=== PATIENT | male | born 1965 | race Caucasian/White ===

== ENCOUNTER 2020-04-06 15:16 | Emergency (ER) | payer OTHER, SELFPAY ==
[2020-04-06 17:05] VITALS: BP 149/94; PULSE 82; RESP 18; TEMP 37; O2SAT 98; BMI 40.0
--- NOTE | 2020-04-06 17:05 | ED.EAR ---
HPI - Ear Problem General Chief complaint: Ear Problems Stated complaint: FB IN EAR Time Seen by Provider: 04/06/20 16:51 Source: patient Mode of arrival: ambulatory Limitations: no limitations History of Present Illness HPI Narrative: attempted to get FB out of ear then noted blood thinks it was metal from work Complaint: ear pain and foreign body Location: left ear Duration: constant Severity: mild Relieving factors: nothing Exacerbating factors: nothing Context: trauma (thinks he got metal in his ear then tried to get it out with a qtip and noted blood) Discharge from ear: yes - bloody Treatment prior to arrival: none Related Data Previous Rx's Medication Instructions Recorded ofloxacin 10 drp OTIC (EARS) DAILY 7 Days #5 04/06/20 ml Allergies Allergy/AdvReac Type Severity Reaction Status Date / Time piroxicam [PIROXICAM] Allergy Intermediate NOSEBLEEDS Verified 04/06/20 17:04 Review of Systems Review of Systems: Constitutional : No Fever, No Chills ENT/Mouth : No swallowing difficulty, no change in voice, no mass, pain in left ear and bloody drainage noted Eyes: No Eye Pain, No Swelling Cardiovascular : No Chest Pain, No SOB Respiratory : No Cough, No Sputum Gastrointestinal : No Nausea, No Vomiting, No Diarrhea Genitourinary : No Dysuria Musculoskeletal : No Myalgias Skin : No rash Neuro : No Weakness, No Numbness, No Headache PMFSH Past Medical History Medical History Degenerative disc disease Depression GERD (gastroesophageal reflux disease) HTN (hypertension) Hypothyroid Low testosterone in male Migraines Osteoarthritis Overactive bladder Scoliosis Sleep apnea Surgical History Hip joint replacement status Social History Social History (Updated 04/06/20 @ 17:10 by Karolyn Edge DO) Smoking Status: Never smoker Physical Exam Vital Signs: Vital Signs: Vital Signs Temp Pulse Resp BP Pulse Ox 04/06/20 17:05 98.6 F 82 18 149/94 H 98 Body Mass Index 40.0 Appearance: Alert. Oriented X3. No acute distress. Eyes: Pupils equal, round and reactive to light. ENT: Pharynx normal. L ear abrasion less than 1cm on inferior portion of canal - bloody drainage noted, fresh, TM intact, no FB seen but bits of qtip noted (cotton) Neck: Normal inspection. Neck supple. CVS: Normal heart rate and rhythm. Pulses normal. Respiratory: No respiratory distress. Breath sounds normal. Abdomen: Soft and nontender. Skin: Skin warm and dry. Normal skin color. Normal skin turgor. Extremities: No lower extremity edema. No calf ttp Neuro: Oriented X 3. No motor deficit. No sensory deficit. Procedures FB Removal Ear Location: ear canal (L) Foreign Body Suspected: other (cotton from qtip) TM intact pre-procedure: yes Foreign Body Removed: yes Foreign Body Removal Technique: forceps Tympanic Membrane Intact Post Procedure: Yes Patient Tolerated Procedure: well Complications: none MDM - Ear MDM Narrative Medical decision making narrative: 54 yo male with FB likely in ear and attempts to remove at home caused bleeding and abrasion, removed some bits of cotton from ear, irrigated with sterile saline, TM intact, will Rx ofloxacin drops and if not better refer to ENT Discharge Plan Discharge Clinical Impression: Otitis externa, Abrasion Patient Disposition: Home, Self-Care Instructions: Otitis Externa (ED), Ear Abrasion (ED) Additional Instructions: do not get any water in your ear x 3 days including in shower, do not put anything like ear phones in your ear x 1 week, any worsening pain, yellow drainage, hearing loss please return to the ED [facility] Prescriptions: New ofloxacin 0.3 % drops 10 drp otic (ears) DAILY 7 Days Qty: 5 RF: 0 Referrals: Alberto Tomlin [Physician] - 3 days (if not better)
== END 2020-04-06 17:39 | disposition home or self-care (01) ==
LOC: HO.ED 17:33
PROVIDERS: Emergency Provider Emergency Medicine; PCP Internal Medicine
DX: H60.92 Unspecified otitis externa, left ear (principal); S00.412A Abrasion of left ear, initial encounter; T16.2XXA Foreign body in left ear, initial encounter; H92.02 Otalgia, left ear; Y33.XXXA Other specified events, undetermined intent, initial encounter; Y93.9 Activity, unspecified; Y92.009 Unspecified place in unspecified non-institutional (private) residence as the place of occurrence of the external cause
CPT/HCPCS: 69200; 99283

== ENCOUNTER 2020-05-23 10:59 | Outpatient (REF) | payer OTHER, SELFPAY | END 2020-05-23 11:00 | disposition home or self-care (01) | LOC: HO.LAB 10:59 | PROVIDERS: Visit Provider Internal Medicine | DX: Z20.828 Contact with and (suspected) exposure to other viral communicable diseases (principal) | CPT/HCPCS: C9803; U0003 ==

== ENCOUNTER 2020-07-15 07:34 | Outpatient (REF) | payer OTHER, SELFPAY | END 2020-07-15 07:35 | disposition home or self-care (01) | LOC: HO.LAB 07:34 | PROVIDERS: Visit Provider Internal Medicine | DX: Z20.822 Contact with and (suspected) exposure to COVID-19 (principal) | CPT/HCPCS: 36415; C9803; U0003; U0005 ==

== ENCOUNTER 2021-06-27 09:49 | Outpatient (REF) | payer OTHER, SELFPAY ==
--- NOTE | ~2021-06-27 | XR_ITS ---
EXAMINATION: XR PELVIS CLINICAL INFORMATION: Hip pain. COMPARISON: Previous left hip and pelvis x-rays from 2018. TECHNIQUE: AP view of the pelvis. FINDINGS: There is a left hip replacement in satisfactory position. No evidence of fracture, dislocation or loosening is seen. There is increasing soft tissue ossification adjacent to the left greater trochanter. There is severe arthritis at the right hip joint with joint space narrowing, osteophyte formation and subchondral cyst formation. Bones of the pelvis are unremarkable. There are degenerative changes of the visualized lower lumbar spine. XR/XR pelvis 1-2V IMPRESSION: Severe right hip arthritis. Satisfactory appearance of left hip replacement. Increasing soft tissue ossification adjacent to the left greater trochanter.
== END 2021-06-27 09:50 | disposition home or self-care (01) ==
LOC: HO.HOSX 09:49
PROVIDERS: Visit Provider Orthopaedic Surgery
DX: M25.551 Pain in right hip (principal); M16.11 Unilateral primary osteoarthritis, right hip; I10 Essential (primary) hypertension; E03.9 Hypothyroidism, unspecified; K21.9 Gastro-esophageal reflux disease without esophagitis; G47.30 Sleep apnea, unspecified; Z96.642 Presence of left artificial hip joint; Z88.8 Allergy status to other drugs, medicaments and biological substances
CPT/HCPCS: 72170

== ENCOUNTER 2021-09-18 06:38 | Outpatient (REF) | payer OTHER, SELFPAY ==
--- NOTE | ~2021-09-18 | XR_ITS ---
EXAMINATION: XR HIP, RIGHT CLINICAL INFORMATION: Pain COMPARISON: Previous x-ray June 2021 TECHNIQUE: Two views of the right hip. FINDINGS: There is severe right hip arthritis with joint space narrowing, osteophyte formation and subchondral cyst formation. Similar to June 2021 exam. No fracture or dislocation is seen. Soft tissues are normal. XR/XR hip RT min 2V IMPRESSION: Severe right hip arthritis.
== END 2021-09-18 06:39 | disposition home or self-care (01) ==
LOC: HO.HOSX 06:38
PROVIDERS: Visit Provider Physician Assistant
DX: M16.11 Unilateral primary osteoarthritis, right hip (principal)
CPT/HCPCS: 73502

== ENCOUNTER 2021-09-24 10:18 | Inpatient (IN) | payer OTHER, SELFPAY ==
[2021-09-10 12:22] VITALS: BMI 41.8
[2021-09-10 12:30] VITALS: BP 122/59; PULSE 80; RESP 18; O2SAT 98
--- NOTE | 2021-09-10 12:58 | P.CONAN_ITS ---
Documented by User: Nadia Hernandez NP 09/11/21 12:03 HPI - Anesthesia Eval Consult details Narrative: 55yo M for Right Total Hip PCP cleared s/p left total hip 2018, GA_ETT 7.5 - no issue with anesthesia PMFSH Active Problems Active Problems: All Active Problems (Updated 09/10/21 @ 12:37 by Shelly Burdick RN) Primary osteoarthritis of right hip (Acute) GERD (gastroesophageal reflux disease) (Acute) HTN (hypertension) (Acute) Sleep apnea (Acute) Past Medical History Medical History Degenerative disc disease Depression GERD (gastroesophageal reflux disease) HTN (hypertension) Hypothyroid IFG (impaired fasting glucose) Low testosterone in male Low vitamin D level Migraines Osteoarthritis Overactive bladder Scoliosis Sleep apnea Family History Family history of problems with anesthesia: No Surgical History Surgical History History of nasal surgery Hx of colonoscopy Hx of hernia repair Hx of total hip arthroplasty History of Problems with Anesthesia: No Social History Social History Are you a primary direct care supervisor to a significant other at home: No Do you presently have visiting nurse or other home services: No Alcohol intake: never Patient Tobacco Use Status: Never used Tobacco Second Hand Smoke Exposure: Yes () Use of substances other than those prescribed or required for medical reasons: No Have you been hit, kicked, punched, or otherwise hurt by someone within the past year? If so, by whom?: No Spiritual Healthcare Practices: none Confucianism Healthcare Practices: none Cultural Healthcare Practices: none Are you DNR?: No Advance Directives: No Advance Directives Information Provided: Yes Advance Directives on File: No Recently lost weight without trying: No Nutrition Risks: No Nutritional Risk Poor oral hygiene: No Narrative Narrative: No recent illness. No CP/SOB with stairs, walking. Activity limited to pain Meds Allergies Allergy/AdvReac Type Severity Reaction Status Date / Time piroxicam [PIROXICAM] Allergy Intermediate NOSEBLEEDS Verified 09/24/21 10:25 Home Medications Medication Instructions Recorded Confirmed Last Taken Type ibssonsqpd-yjwyvnccyucnv-tlcjsqlr 1 cap PO Q8H PRN 06/27/21 09/10/21 Unknown History 50 mg-300 mg-40 mg capsule diazepam 2 mg tablet 2 mg PO BEDTIME PRN 06/27/21 09/10/21 Unknown History diclofenac sodium 75 mg 75 mg PO BID 06/27/21 09/10/21 Unknown History tablet,delayed release escitalopram oxalate 20 mg tablet 20 mg PO BEDTIME 06/27/21 09/10/21 09/24/21 06:00 History hydroxychloroquine 200 mg tablet 200 mg PO BID 06/27/21 09/10/21 Unknown History ibuprofen 600 mg tablet 600 mg PO Q8H PRN 06/27/21 09/24/21 09/22/21 History levothyroxine 50 mcg capsule 50 mcg PO DAILY 06/27/21 09/10/21 09/24/21 06:00 History lisinopril 40 mg tablet 40 mg PO BEDTIME 06/27/21 09/10/21 Unknown History nifedipine 30 mg tablet,extended 30 mg PO BEDTIME 06/27/21 09/10/21 09/24/21 06:00 History release pantoprazole 40 mg tablet,delayed 40 mg PO BEDTIME 06/27/21 09/10/21 09/24/21 06:00 History release pramipexole 0.25 mg tablet 0.25 mg PO BEDTIME 06/27/21 09/10/21 Unknown History oxycodone 5 mg tablet 0.5 tab PO Q8H PRN 09/10/21 09/10/21 Unknown History Exam Exam Date and Time: September 10, 2021 1258 Height,Weight and Vital Signs: Height 6 ft Weight 140 kg Last Vital Signs Pulse 80 09/10/21 12:30 Resp 18 09/10/21 12:30 BP 122/59 L 09/10/21 12:30 Pulse Ox 98 09/10/21 12:30 Pertinent Lab Results Pertinent Lab Results: From outside facility 08/29/21 WBC 5.8 Hgb 11.9 (L) Hct 38.3 (L) Plt 216 Na 144 K 4.3 Cl 107 CO2 29 BUN 16 Creat 0.7 A1C 5.8 Narrative Narrative: EKG 08/26/21 NSR @ 75 Prolonged QTc @ 480 Airway Mallampati Class: III TM Dist: >3cm Neck ROM: Full Loose/Missing/Broken Teeth: Yes (8&9 missing) Heart: RRR Lungs: CTAB Assessment and Plan Assessment Anesthesia Assessment: Anesthesia Plan Discussed and PAT Visit Final Anesthetic Review Family History of Problems with Anesthesia: No History of Problems with Anesthesia: No Documented by User: Kamran Sung MD 09/24/21 13:06 HPI - Anesthesia Eval Consult details Narrative: 55yo M for Right Total Hip Right lower extremity edematous and warm compared to left . As per patient he got Ultrasound performed and was negative for thrombosis . PCP on board and has started the patient on diuretics . Surgeon also aware and inspected the extremity and would like to proceed with the surgery . Had a discussion with the patient as well and he would like to proceed as well . PCP cleared s/p left total hip 2018, GA_ETT 7.5 - no issue with anesthesia PMFSH Past Medical History Medical History Degenerative disc disease Depression GERD (gastroesophageal reflux disease) HTN (hypertension) Hypothyroid IFG (impaired fasting glucose) Low testosterone in male Low vitamin D level Migraines Osteoarthritis Overactive bladder Scoliosis Sleep apnea Surgical History Surgical History History of nasal surgery Hx of colonoscopy Hx of hernia repair Hx of total hip arthroplasty Social History Social History Are you a primary direct care supervisor to a significant other at home: No Do you presently have visiting nurse or other home services: No Alcohol intake: never Patient Tobacco Use Status: Never used Tobacco Second Hand Smoke Exposure: Yes () Use of substances other than those prescribed or required for medical reasons: No Have you been hit, kicked, punched, or otherwise hurt by someone within the past year? If so, by whom?: No Spiritual Healthcare Practices: none Confucianism Healthcare Practices: none Cultural Healthcare Practices: none Are you DNR?: No Advance Directives: No Advance Directives Information Provided: Yes Advance Directives on File: No Recently lost weight without trying: No Nutrition Risks: No Nutritional Risk Poor oral hygiene: No Meds Allergies Allergy/AdvReac Type Severity Reaction Status Date / Time piroxicam [PIROXICAM] Allergy Intermediate NOSEBLEEDS Verified 09/24/21 10:25 Home Medications Medication Instructions Recorded Confirmed Last Taken Type vlbalrmeyi-zopviqtcfjbof-fdntmjqe 1 cap PO Q8H PRN 06/27/21 09/10/21 Unknown History 50 mg-300 mg-40 mg capsule diazepam 2 mg tablet 2 mg PO BEDTIME PRN 06/27/21 09/10/21 Unknown History diclofenac sodium 75 mg 75 mg PO BID 06/27/21 09/10/21 Unknown History tablet,delayed release escitalopram oxalate 20 mg tablet 20 mg PO BEDTIME 06/27/21 09/10/21 09/24/21 06:00 History hydroxychloroquine 200 mg tablet 200 mg PO BID 06/27/21 09/10/21 Unknown History ibuprofen 600 mg tablet 600 mg PO Q8H PRN 06/27/21 09/24/21 09/22/21 History levothyroxine 50 mcg capsule 50 mcg PO DAILY 06/27/21 09/10/21 09/24/21 06:00 History lisinopril 40 mg tablet 40 mg PO BEDTIME 06/27/21 09/10/21 Unknown History nifedipine 30 mg tablet,extended 30 mg PO BEDTIME 06/27/21 09/10/21 09/24/21 06:00 History release pantoprazole 40 mg tablet,delayed 40 mg PO BEDTIME 06/27/21 09/10/21 09/24/21 06:00 History release pramipexole 0.25 mg tablet 0.25 mg PO BEDTIME 06/27/21 09/10/21 Unknown History oxycodone 5 mg tablet 0.5 tab PO Q8H PRN 09/10/21 09/10/21 Unknown History Exam Airway Loose/Missing/Broken Teeth: Yes (8&9 missing, implants ) Assessment and Plan Assessment Anesthesia Assessment: Chart Reviewed Final Anesthetic Review NPO: Yes ASA Class: III Final Preanesthetic Review: No Changes in Pt Med Stat, Meds/Allgs Chart Reviewed, Consent Obtained/Reviewed and Anes Risks/Benef Reviewed Patient Risk: High Procedure Risk: High Anesthetic Plan Anesthetic Plan: GA Disposition: Inp. Admit - Standard Bed
[2021-09-10 15:07] LABS: MRSA Nasal PCR NEGATIVE (Negative); SA Nasal PCR NEGATIVE (Negative)
[2021-09-24] VITALS (18 sets, daily range): BP systolic 126–159; BP diastolic 64–89; PULSE 93–109; RESP 13–20; TEMP 36.2–36.7; O2SAT 93–99
--- NOTE | ~2021-09-24 | XR_ITS ---
EXAMINATION: XR PELVIS CLINICAL INFORMATION: Total right hip. COMPARISON: Right hip 09/18/2021 AP pelvis 12/20/2017 TECHNIQUE: AP view of the pelvis. FINDINGS: Status post right hip prosthesis with prosthetic components in alignment. There is no periprosthetic loosening or periprostatic fracture. Previously placed left hip prosthesis is stable compared to 12/20/2017 pelvic exam.. XR/XR pelvis 1-2V IMPRESSION: Status post right hip prosthesis with normal prosthetic alignment. No periprosthetic fracture or soft tissue abnormality. No change in left hip prosthesis from 12/20/2017.
[2021-09-24 10:41] LABS: MANUAL DIFF FLAG NO
[2021-09-24 10:44] LABS: Basophils Percent Auto 0.4 % (0-2); Eosinophils Absolute Auto 0.1 X10*3/uL (0.0-0.4); Hemoglobin 13.3 g/dl (14.0-18.0); Imm Gran Abs Auto 0.02 X10*3/uL (0.00-0.03); Imm Gran Pct Auto 0.3 % (0.0-0.4); Lymphocytes Absolute Auto 1.5 X10*3/uL (1.2-4.9); Lymphocytes Percent Auto 20.4 % (20-40); Mean Corpuscular HGB Conc 31.7 g/dl (31.0-36.0); Mean Corpuscular Volume 91.7 fL (80.0-98.0); Mean Platelet Volume 10.4 fL (9.4-12.4); Monocytes Absolute Auto 0.6 X10*3/uL (0.1-1.2); Monocytes Percent Auto 7.7 % (2-11); Neutrophils Percent Auto 70.2 % (45-73); Platelet Count 202 X10*3/uL (160-400); Red Blood Count 4.58 X10*6/uL (4.60-5.80); Red Cell Distribution Width 13.4 % (11.0-16.0); White Blood Count 7.2 X10*3/uL (4.8-10.8)
--- NOTE | 2021-09-24 10:44 | MHC.SHP ---
Pre-Procedural Eval Section A Date of Service: 09/24/21 The patient is an INPATIENT: No Changes since office visit: Yes Patient answered all questions; No Cold of Flu in the past 2 weeks, No New Medical Problems and No Changes in Medication The History & Physical has been completed within 30 days and I have reviewed it.: Yes Section B Chief Complaint: osteoarthritis Allergies: Allergies Allergy/AdvReac Type Severity Reaction Status Date / Time piroxicam [PIROXICAM] Allergy Intermediate NOSEBLEEDS Verified 09/24/21 10:25 Plan I have reviewed the history and physical and performed a pertinent physical examination on my patient. No changes have occurred unless specified.
[2021-09-24 10:49] LABS: COVID-19 Test Negative (Negative); IDNOW Serial# 16C4AD1C
[2021-09-24] MEDS: oxyCODONE HCl ER 10 MG TAB.ER.12H PO ×2 (10:55→20:15)
[2021-09-24] MEDS: Lactated Ringers 1,000 ML 100 ML IVCONT ×2 (11:13→15:13)
--- NOTE | 2021-09-24 11:15 | PC.NURSE ---
Patient arrived to [facility] for prep for total hip replacement on right side. Right lower leg and foot swollen with +2 pitting edema. Extremity pinker and warmer to touch when compared to left side. Per patient My right leg has been like this for months, I've had an ultrasound to rule out DVT and the tests came back negative, My PCP has started me on a diuretic which has been helping . Palpable pulses throughout right lower extremity, patient denies any numbness. Dr. Mae and Dr. Sung made aware and both at bedside to assess leg. No new orders and cleared to proceed with surgery. Hortencia Walden RN notified during report.
--- NOTE | 2021-09-24 13:47 | P.BOP_ITS ---
Brief Operative Note Date of Service: 09/24/21 Pre-op diagnosis: right hip OA Post-op diagnosis: same Procedure: Right GENESIS Implants: Ai Trident2 54mm with 20 deg post lipped liner Strykler Accolade2 127deg #6 with +5 36 Ceramic Surgeon: Geo Mae MD Anesthesia: GETA Was an Director Records Management used for this Procedure?: No Director Records Management: Annette Tuttle Estimated blood loss (mL): 200 IV fluids (mL): 1,000 Pathology: other Condition: stable Disposition: PACU
[2021-09-24] MEDS: fentaNYL citrate/PF 100 MCG/2 ML VIAL 25 MCG IVPUSH ×4 (13:48→14:03)
--- NOTE | 2021-09-24 13:51 | P.OP_ITS ---
Operative Note Operative Note Date of Service: 09/24/21 Narrative: Date of Service: 09/24/21 Pre-op diagnosis: right hip OA Post-op diagnosis: same Procedure: Right GENESIS Implants: [place] Trident2 54mm with 20 deg post lipped liner Strykler Accolade2 127deg #6 with +5 36 Ceramic Surgeon: Geo Mae MD Anesthesia: GETA Was an Welder And Fitter used for this Procedure?: No Welder And Fitter: Annette Tuttle Estimated blood loss (mL): 200 IV fluids (mL): 1,000 Pathology: other Condition: stable Disposition: PACU Procedure in detail: Patient was brought into the operating room and placed in the left lateral decubitus position. All bony prominences were well padded and the limb was prepped and draped in standard sterile fashion. Time-out was called to identify proper site procedure proper surgeon IV antibiotics and 1 g of transaxemic acid were administered. I began by making a curvilinear incision over the posterolateral aspect of the greater trochanter. Dissection was taken down to the tensor fascia which was incised in line with the incision and a Charnley retractor was placed. Cautery was used to maintain hemostasis. A werewolf device was also used. The hip was internally rotated and the external rotators were identified. The vessels were cauterized and a full-thickness capsular/external rotator layer was developed starting just proximal to the piriformis. This layer was tagged and a dull Hohmann retractor was placed underneath the neck in the hip was dislocated. The head was deformed and eburnated. A neck cut was made 1 cm proximal to the lesser trochanter and the head and neck were removed and measured on the back table. I started with a 44 reamer and sequentially reamed up to 54mm and impacted a 54 cup at approximately 45 degrees of inclination and 25 degrees of version. I then placed a 20 deg posterior lipped liner and turned my attention to the femur. I identified the piriformis insertion and used this as a starting point for my patsy cutter. The medius tendon was protected with a Hibs retractor. I then used a Charnley awl to identify the canal and a curved curette to remove the lateral bone. I irrigated copiously. I then sequentially broached in the patient's natural version to a size 6 and placed my trial implants. Using a +5 trial head (same os C/L side) I took the hip through range of motion. I was very satisfied with the stability and length. Therefore I removed all instrumentation and copiously irrigated. I placed my final femoral implant and again took the hip through range of motion and was satisfied with the stability and length using a +5. The final ceramic head was placed. I then irrigated for 3 minutes with iodine and placed 1 g of local tranaxemic acid. I then performed a capsular closure with 2.0 fiberwire, Fernanda's fascia with 0 Vicryl, subcuticular with 2-0 Vicryl and the skin with mitchell. Patient was placed into a sterile dressing. Radiographs were obtained at the completion of the case and I was satisfied with the component position. Patient was extubated brought to the recovery room in stable condition.
[2021-09-24] MEDS: HYDROmorphone HCl 0.5 MG/0.5 ML SYRINGE 0.25 MG IVPUSH ×4 (14:08→14:23)
[2021-09-24] MEDS: HYDROmorphone HCl 0.5 MG/0.5 ML SYRINGE IVPUSH (14:53)
--- NOTE | 2021-09-24 16:54 | P.CONHOSP_ITS ---
History of Present Illness Data of Consult Service Date: 09/24/21 Primary Care Provider: Chantale Trinidad MD HPI 55 year old ol male with HTN, GERD, Hypothyroidism, DJD amongst other dwho underwent elective R GENESIS today and doing fine post op. He voices no acute issues, pain is controlled. Review of Systems Review of Systems: Gen: no fever Resp: no sob, no cough CV: no chest, no CONTRERAS, no leg edema GI: No n/v, no abd pain Neuro: No confusion Yes all other systems are reviewed and are negative [facility] Medical History Degenerative disc disease Depression GERD (gastroesophageal reflux disease) HTN (hypertension) Hypothyroid IFG (impaired fasting glucose) Low testosterone in male Low vitamin D level Migraines Osteoarthritis Overactive bladder Scoliosis Sleep apnea Surgical History History of nasal surgery Hx of colonoscopy Hx of hernia repair Hx of total hip arthroplasty Social History Household Members: Spouse Housing: House Are you a primary critical care registered nurse to a significant other at home: No Do you presently have visiting nurse or other home services: No Alcohol intake: never Patient Tobacco Use Status: Never used Tobacco Second Hand Smoke Exposure: Yes () Use of substances other than those prescribed or required for medical reasons: No Currently Displaying Signs/Symptoms of Drug Intoxication Withdrawal: No Have you been hit, kicked, punched, or otherwise hurt by someone within the past year? If so, by whom?: No Do you feel safe in your current relationship?: Yes Is there a partner from a previous relationship who is making you feel unsafe now?: No Are you made to feel afraid or neglected: No Spiritual Healthcare Practices: none [facility] Healthcare Practices: none Cultural Healthcare Practices: none Are you DNR?: No Advance Directives: No Advance Directives Information Provided: Yes Advance Directives on File: No Do you have thoughts of harming others: None Do you have a plan to hurt others: No Plan Recently lost weight without trying: No Nutrition Risks: No Nutritional Risk Poor oral hygiene: No Meds Allergies Allergy/AdvReac Type Severity Reaction Status Date / Time piroxicam [PIROXICAM] Allergy Intermediate NOSEBLEEDS Verified 09/24/21 10:25 Active Medications: Current Medications Acetaminophen (Acetaminophen 325 Mg Tablet) 650 mg PO Q6H PRN PRN Reason: Pain, Mild (Pain Scale 1-3) Acetaminophen/Butalbital/Caffeine (Butalb/Acetamin/Caff 50/325/40 Tablet) 1 tab PO Q8H PRN PRN Reason: Headache Celecoxib (Celecoxib 200 Mg Capsule) 200 mg PO BID [facility] Diazepam (Diazepam 2 Mg Tablet) 2 mg PO BEDTIME PRN PRN Reason: Anxiety Docusate Sodium (Docusate Sodium 100 Mg Capsule) 100 mg PO BID [facility] Escitalopram Oxalate (Escitalopram Oxalate 20 Mg Tablet) 20 mg PO BEDTIME [facility] Hydroxychloroquine Sulfate (Hydroxychloroquine Sulfate 200 Mg Tablet) 200 mg PO BID [facility] Lactated Ringer's (Lr) 1,000 mls @ 100 mls/hr IVCONT .Q10H [facility] Last Admin: 09/24/21 15:13 Dose: 100 mls/hr Documented by: Promethazine HCl 12.5 mg/ (Sodium Chloride) 50.5 mls @ 202 mls/hr IV ONCE PRN PRN Reason: Nausea and Vomiting Cefazolin Sodium/Dextrose (Ancef) 2 gm in 50 mls @ 100 mls/hr IV POSTOP ONE Stop: 09/24/21 17:29 Levothyroxine Sodium (Levothyroxine Sodium 50 Mcg Tablet) 50 mcg PO DAILY@0600 [facility] Lisinopril (Lisinopril 40 Mg Tablet) 40 mg PO BEDTIME [facility]; Protocol Nifedipine (Nifedipine Er 30 Mg Tab.Er.24) 30 mg PO BEDTIME [facility] Omeprazole (Omeprazole 20 Mg Capsule.Dr) 20 mg PO BEDTIME [facility] Oxycodone HCl (Oxycodone Hcl Immed Release 5 Mg Tablet) 5 mg PO Q4H PRN PRN Reason: Pain, Moderate (Pain Scale 4-6 Oxycodone HCl (Oxycodone Hcl Er 10 Mg Tab.Er.12h) 10 mg PO BID [facility] Pramipexole Dihydrochloride (Pramipexole Di-Hcl 0.25 Mg Tablet) 0.25 mg PO BEDTIME [facility] Sodium Chloride (0.9 % Sodium Chloride Flush 3 Ml Syringe) 3 ml IVFLUSH QSHIFT [facility] Home Medications Medication Instructions Recorded Confirmed Last Taken Type kpljvrazyk-[id number]-[id number] 1 cap PO Q8H PRN 06/27/21 09/10/21 Unknown History 50 mg-300 mg-40 mg capsule diazepam 2 mg tablet 2 mg PO BEDTIME PRN 06/27/21 09/10/21 Unknown History diclofenac sodium 75 mg 75 mg PO BID 06/27/21 09/10/21 Unknown History tablet,delayed release escitalopram oxalate 20 mg tablet 20 mg PO BEDTIME 06/27/21 09/10/21 09/24/21 06:00 History hydroxychloroquine 200 mg tablet 200 mg PO BID 06/27/21 09/10/21 Unknown History ibuprofen 600 mg tablet 600 mg PO Q8H PRN 06/27/21 09/24/21 09/22/21 History levothyroxine 50 mcg capsule 50 mcg PO DAILY 06/27/21 09/10/21 09/24/21 06:00 History lisinopril 40 mg tablet 40 mg PO BEDTIME 06/27/21 09/10/21 Unknown History nifedipine 30 mg tablet,extended 30 mg PO BEDTIME 06/27/21 09/10/21 09/24/21 06:00 History release pantoprazole 40 mg tablet,delayed 40 mg PO BEDTIME 06/27/21 09/10/21 09/24/21 06:00 History release pramipexole 0.25 mg tablet 0.25 mg PO BEDTIME 06/27/21 09/10/21 Unknown History oxycodone 5 mg tablet 0.5 tab PO Q8H PRN 09/10/21 09/10/21 Unknown History Physical Exam Vital Signs and Narrative: Vital Signs: Last Vital Signs Temp 97.7 F 09/24/21 15:13 Pulse 98 09/24/21 15:13 Resp 14 09/24/21 15:13 BP 159/86 H 09/24/21 15:13 Pulse Ox 95 09/24/21 15:13 BMI result Body Mass Index 41.8 Const: Other: General: AO X 3, no acute distress Resp: CTA bilateral CVS: S1,S2,RRR GI: +BS, NT, no distention Skin: No rash, no rash, incicison site clean, right leg is much bigger Neuro: motor grossly intact Psych: appropriate affect Results Labs CBC and Chem 7: 09/25/21 05:21 09/25/21 05:21 Labs: Laboratory Results - last 24 hr 09/24/21 09/24/21 10:20 10:35 MCV 91.7 MCH 29.0 MCHC 31.7 RDW 13.4 Plt Count 202 MPV 10.4 Immature Gran % (Auto) 0.3 Neut % (Auto) 70.2 Lymph % (Auto) 20.4 Power % (Auto) 7.7 Eos % (Auto) 1.0 Baso % (Auto) 0.4 Lymph # (Auto) 1.5 Power # (Auto) 0.6 Eos # (Auto) 0.1 Baso # (Auto) 0.0 Abs Immat Gran (auto) 0.02 Absolute Neuts (auto) 5.0 Absolute Nucleated RBC 0.000 Nucleated RBC % (auto) 0.0 COVID-19 (HAIDER) Negative COVID-19 Clin Com See Note Imaging Radiologist's Impressions: Impressions Pelvis X-Ray 09/24/21 13:26 IMPRESSION: Status post right hip prosthesis with normal prosthetic alignment. No periprosthetic fracture or soft tissue abnormality. No change in left hip prosthesis from 12/20/2017. Assessment and Plan (1) HTN (hypertension): Status: Acute (2) GERD (gastroesophageal reflux disease): Status: Acute (3) Primary osteoarthritis of right hip: Status: Acute Plan s/p elective R GENESIS 1/HTN--continue Lisinoprill and Nifedipin 2/HypOthyrodisim--LT4 3/GERD--PPI 4/h/o Migrane-- 5/right leg edema has had work up including DVT studies 6/h/o migraine.. no recent flare 7/s/p R GENESIS, management per ortho
[2021-09-24] MEDS: ceFAZolin Sodium/Dextrose,Iso 2 GM/50 ML PIGGYBACK IV (17:32)
[2021-09-24] MEDS: oxyCODONE HCl Immed Release 5 MG TABLET PO (17:45)
[2021-09-24] MEDS: Hydroxychloroquine Sulfate 200 MG TABLET PO (20:14)
[2021-09-24] MEDS: Docusate Sodium 100 MG CAPSULE PO (20:14)
[2021-09-24] MEDS: Celecoxib 200 MG CAPSULE PO (20:14)
[2021-09-24] MEDS: Pramipexole Di-HCL 0.25 MG TABLET PO (20:15)
[2021-09-24] MEDS: Omeprazole 20 MG CAPSULE.DR PO (20:15)
[2021-09-24] MEDS: Acetaminophen 325 MG TABLET 650 MG PO (20:16)
[2021-09-24] MEDS: NIFEdipine ER 30 MG TAB.ER.24 PO (20:16)
[2021-09-24] MEDS: lisinopriL 40 MG TABLET PO (20:16)
[2021-09-24] MEDS: Escitalopram Oxalate 20 MG TABLET PO (20:16)
--- NOTE | 2021-09-24 22:45 | PC.NURSE ---
P patient uses cpap at hs I Dr. Meek notified E awaiting new order
[2021-09-24] MEDS: Butalb/Acetamin/Caff 50/325/40 TABLET 1 TAB PO (23:43)
[2021-09-25] VITALS (8 sets, daily range): BP systolic 92–140; BP diastolic 54–73; PULSE 75–111; RESP 17–20; TEMP 36.2–37.2; O2SAT 92–96
[2021-09-25] MEDS: Lactated Ringers 1,000 ML 100 ML IVCONT (01:24)
[2021-09-25] MEDS: oxyCODONE HCl Immed Release 5 MG TABLET PO ×4 (01:28→17:07)
--- NOTE | 2021-09-25 03:14 | PC.NURSE ---
PATIENT POD #1 RIGHT TOTAL HIP; WBAT, AQUACEL DSG C-D-I. VOIDING TO BEDSIDE URINAL, SEQUENTIAL STOCKINGS ON BILAT. MEDICATED FOR HEADACHE WITH PO FIORICET WITH GOOD EFFECT. VSS WITH OXYGEN AT 2L/M N/C. ASSISTED PT WITH OWN CPAP SET UP AND HE IS INDEPENDENT WITH FACIAL MASK APPLICATION AND FIT. O2 REMOVED WHEN CPAP IN PLACE AND O2 SATS95%. WILL CONTINUE TO MONITOR.
[2021-09-25] MEDS: Levothyroxine Sodium 50 MCG TABLET PO (05:31)
[2021-09-25] MEDS: Acetaminophen 325 MG TABLET 650 MG PO ×2 (05:31→17:07)
[2021-09-25 06:06] LABS: MANUAL DIFF FLAG NO
[2021-09-25 06:17] LABS: Basophils Percent Auto 0.1 % (0-2); Hematocrit 35.7 % (42.0-52.0); Hemoglobin 11.3 g/dl (14.0-18.0); Imm Gran Abs Auto 0.04 X10*3/uL (0.00-0.03); Imm Gran Pct Auto 0.4 % (0.0-0.4); Lymphocytes Absolute Auto 0.8 X10*3/uL (1.2-4.9); Lymphocytes Percent Auto 7.1 % (20-40); Mean Corpuscular HGB Conc 31.7 g/dl (31.0-36.0); Mean Corpuscular Hemoglobin 29.4 pg (27.0-33.0); Mean Platelet Volume 10.4 fL (9.4-12.4); Monocytes Percent Auto 9.3 % (2-11); Neutrophils Percent Auto 83.1 % (45-73); Platelet Count 223 X10*3/uL (160-400); Red Blood Count 3.84 X10*6/uL (4.60-5.80); Red Cell Distribution Width 13.7 % (11.0-16.0); White Blood Count 10.8 X10*3/uL (4.8-10.8)
[2021-09-25 06:34] LABS: Anion Gap 15 (12-20); Blood Urea Nitrogen 18 mg/dL (9-16); Calcium 8.5 mg/dL (8.4-10.2); Carbon Dioxide 24 mmol/L (22-29); Chloride 104 mmol/L (96-108); Creatinine Clr Calc Pharmacy 144.1; Estimated Glomerular Filt Rate > 60; Glucose Fasting 136 mg/dL (60-99); Sodium 139 mmol/L (135-145)
--- NOTE | 2021-09-25 06:43 | HO.POSTANES ---
Post Anesthesia Evaluation Post Anesthesia Evaluation Vital Signs: Vital Signs Temp Pulse Resp BP Pulse Ox 09/25/21 03:18 98.7 F 111 H 20 140/73 H 94 09/24/21 23:17 98.1 F 109 H 20 144/79 H 95 09/24/21 20:11 100 20 139/78 96 Anesthesia: General Mental Status: Awake Pain Control: Satisfactory Nausea/Vomiting: None Hydration: Adequate Anesthesia-Related Issues: No Anes. Related Issues
--- NOTE | 2021-09-25 07:33 | HO.PM.IMPN ---
Subjective Subjective Date of Service: 09/25/21 Interval History: f.u on HTN, post op d1 for right GENESIS doing fine with no pain issues Review of Systems Gen: no fever Resp: no sob, no cough CV: no chest, no CONTRERAS, no leg edema GI: No n/v, no abd pain Neuro: No confusion Physical Exam Vital Signs: Vital Signs: Last Vital Signs Temp 98.9 F 09/25/21 07:28 Pulse 110 H 09/25/21 07:28 Resp 18 09/25/21 07:28 BP 114/58 L 09/25/21 07:28 Pulse Ox 94 09/25/21 07:28 BMI result Body Mass Index 41.8 Const: Other: General: AO X 3, no acute distress Resp: CTA bilateral CVS: S1,S2,RRR GI: +BS, NT, no distention Skin: No rash, no rash, incicison site clean, right leg is much bigger ext: noted swelling in the right leg which he admits to be chronic Neuro: motor grossly intact Psych: appropriate affect Objective Data Active Medications Acetaminophen (Acetaminophen 325 Mg Tablet) 650 mg PO Q6H PRN PRN Reason: Pain, Mild (Pain Scale 1-3) Last Admin: 09/25/21 05:31 Dose: 650 mg Documented by: NITA Acetaminophen/Butalbital/Caffeine (Butalb/Acetamin/Caff 50/325/40 Tablet) 1 tab PO Q8H PRN PRN Reason: Headache Last Admin: 09/24/21 23:43 Dose: 1 tab Documented by: NITA Celecoxib (Celecoxib 200 Mg Capsule) 200 mg PO BID [facility] Last Admin: 09/24/21 20:14 Dose: 200 mg Documented by: SAMUEL Diazepam (Diazepam 2 Mg Tablet) 2 mg PO BEDTIME PRN PRN Reason: Anxiety Docusate Sodium (Docusate Sodium 100 Mg Capsule) 100 mg PO BID [facility] Last Admin: 09/24/21 20:14 Dose: 100 mg Documented by: SAMUEL Escitalopram Oxalate (Escitalopram Oxalate 20 Mg Tablet) 20 mg PO BEDTIME [facility] Last Admin: 09/24/21 20:16 Dose: 20 mg Documented by: SAMUEL Hydroxychloroquine Sulfate (Hydroxychloroquine Sulfate 200 Mg Tablet) 200 mg PO BID [facility] Last Admin: 09/24/21 20:14 Dose: 200 mg Documented by: SAMUEL Promethazine HCl 12.5 mg/ (Sodium Chloride) 50.5 mls @ 202 mls/hr IV ONCE PRN PRN Reason: Nausea and Vomiting Levothyroxine Sodium (Levothyroxine Sodium 50 Mcg Tablet) 50 mcg PO DAILY@0600 [facility] Last Admin: 09/25/21 05:31 Dose: 50 mcg Documented by: NITA Lisinopril (Lisinopril 40 Mg Tablet) 40 mg PO BEDTIME [facility]; Protocol Last Admin: 09/24/21 20:16 Dose: 40 mg Documented by: SAMUEL Nifedipine (Nifedipine Er 30 Mg Tab.Er.24) 30 mg PO BEDTIME [facility] Last Admin: 09/24/21 20:16 Dose: 30 mg Documented by: SAMUEL Omeprazole (Omeprazole 20 Mg Capsule.Dr) 20 mg PO BEDTIME [facility] Last Admin: 09/24/21 20:15 Dose: 20 mg Documented by: SAMUEL Oxycodone HCl (Oxycodone Hcl Immed Release 5 Mg Tablet) 5 mg PO Q4H PRN PRN Reason: Pain, Moderate (Pain Scale 4-6 Last Admin: 09/25/21 05:30 Dose: 5 mg Documented by: NITA Oxycodone HCl (Oxycodone Hcl Er 10 Mg Tab.Er.12h) 10 mg PO BID [facility] Last Admin: 09/24/21 20:15 Dose: 10 mg Documented by: SAMUEL Pramipexole Dihydrochloride (Pramipexole Di-Hcl 0.25 Mg Tablet) 0.25 mg PO BEDTIME [facility] Last Admin: 09/24/21 20:15 Dose: 0.25 mg Documented by: SAMUEL Sodium Chloride (0.9 % Sodium Chloride Flush 3 Ml Syringe) 3 ml IVFLUSH QSHIFT [facility] Last Admin: 09/25/21 07:03 Dose: Not Given Documented by: GEOVANY Non-Admin Reason: IV Running Labs CBC & Chem 7: 09/25/21 05:21 09/25/21 05:21 Labs: Laboratory Results - last 24 hr 09/24/21 09/24/21 09/25/21 10:20 10:35 05:21 MCV 91.7 93.0 MCH 29.0 29.4 MCHC 31.7 31.7 RDW 13.4 13.7 Plt Count 202 223 MPV 10.4 10.4 Immature Gran % (Auto) 0.3 0.4 Neut % (Auto) 70.2 83.1 H Lymph % (Auto) 20.4 7.1 L [place] % (Auto) 7.7 9.3 Eos % (Auto) 1.0 0.0 Baso % (Auto) 0.4 0.1 Lymph # (Auto) 1.5 0.8 L [place] # (Auto) 0.6 1.0 Eos # (Auto) 0.1 0.0 Baso # (Auto) 0.0 0.0 Abs Immat Gran (auto) 0.02 0.04 H Absolute Neuts (auto) 5.0 9.0 H Absolute Nucleated RBC 0.000 0.000 Nucleated RBC % (auto) 0.0 0.0 Anion Gap Estim Creat Clear Calc Estimated GFR Fasting Glucose Calcium COVID-19 ([facility]IDER) Negative COVID-19 Clin Com See Note 09/25/21 05:21 MCV MCH MCHC RDW Plt Count MPV Immature Gran % (Auto) Neut % (Auto) Lymph % (Auto) [place] % (Auto) Eos % (Auto) Baso % (Auto) Lymph # (Auto) [place] # (Auto) Eos # (Auto) Baso # (Auto) Abs Immat Gran (auto) Absolute Neuts (auto) Absolute Nucleated RBC Nucleated RBC % (auto) Anion Gap 15 Estim Creat Clear Calc 144.1 Estimated GFR > 60 Fasting Glucose 136 H Calcium 8.5 COVID-19 ([facility]ER) COVID-19 Clin Com Assessment and Plan (1) HTN (hypertension): Status: Acute Plan s/p elective R GENESIS 1/HTN--continue Lisinoprill and Nifedipin 2/HypOthyrodisim--continue levothyroxine 3/GERD--PPI 4/h/o Migrane-- 5/right leg edema has had work up including DVT studies 6/h/o migraine.. no recent flare 7/s/p R GENESIS, management per ortho DVT--to be determined by ortho Quality Stroke Does the patient have a stroke diagnosis?: No VTE Prior VTE?: No VTE Risk Level:: Medical - moderate - high VTE Device Contraindication: N/A - Device Ordered VTE Drug Contraindication: N/A - Med Ordered
[2021-09-25] MEDS: Hydroxychloroquine Sulfate 200 MG TABLET PO ×2 (07:47→20:05)
[2021-09-25] MEDS: Docusate Sodium 100 MG CAPSULE PO ×2 (07:47→20:05)
[2021-09-25] MEDS: Celecoxib 200 MG CAPSULE PO ×2 (07:47→20:05)
[2021-09-25] MEDS: oxyCODONE HCl ER 10 MG TAB.ER.12H PO ×2 (07:47→20:04)
[2021-09-25] MEDS: HYDROmorphone HCl 1 MG/ML SYRINGE 0.25 MG IVPUSH (08:29)
[2021-09-25] MEDS: Aspirin 325 MG TABLET PO ×2 (08:31→20:05)
--- NOTE | 2021-09-25 08:46 | P.PNOP_ITS ---
Subjective Subjective Date of Service: 09/25/21 Interval history: POD1 s/p RTHA. Patient restng comfortably in bed. No overnight events. No additional complaints. Physical Exam Vital Signs: Vital Signs: Last Vital Signs Temp 98.9 F 09/25/21 07:28 Pulse 110 H 09/25/21 07:28 Resp 18 09/25/21 07:28 BP 114/58 L 09/25/21 07:28 Pulse Ox 94 09/25/21 07:28 BMI result Body Mass Index 41.8 Const: General: cooperative, healthy appearing and no acute distress Resp: Effort & Inspection: normal respiratory effort and able to speak in complete sentences Cardio: Rate: regular rate Peripheral pulses: Peripheral pulses 2+ throughout GI: Palpation (GI): Soft to palpation Skin: Lesions: no lesions Rashes: no rashes Extrem: Other: Right hip Aquacel is clean, dry, and intact. NVI. Procedures Date of Service Date of Service: 09/25/21 Progress Note: A&P Assessment and plan (1) Status post total hip replacement, right: Status: Acute Assessment and Plan: Continue pain mgmnt Begin ASA for dvt ppx begin PT for RTHA Dispo planning-Pending PT eval, pain mgmnt Fall Risk Details Current Medications: Current Medications Acetaminophen (Acetaminophen 325 Mg Tablet) 650 mg PO Q6H PRN PRN Reason: Pain, Mild (Pain Scale 1-3) Last Admin: 09/25/21 05:31 Dose: 650 mg Documented by: Acetaminophen/Butalbital/Caffeine (Butalb/Acetamin/Caff 50/325/40 Tablet) 1 tab PO Q8H PRN PRN Reason: Headache Last Admin: 09/24/21 23:43 Dose: 1 tab Documented by: Aspirin (Aspirin 325 Mg Tablet) 325 mg PO BID [facility] Last Admin: 09/25/21 08:31 Dose: 325 mg Documented by: Celecoxib (Celecoxib 200 Mg Capsule) 200 mg PO BID [facility] Last Admin: 09/25/21 07:47 Dose: 200 mg Documented by: Diazepam (Diazepam 2 Mg Tablet) 2 mg PO BEDTIME PRN PRN Reason: Anxiety Docusate Sodium (Docusate Sodium 100 Mg Capsule) 100 mg PO BID [facility] Last Admin: 09/25/21 07:47 Dose: 100 mg Documented by: Escitalopram Oxalate (Escitalopram Oxalate 20 Mg Tablet) 20 mg PO BEDTIME [facility] Last Admin: 09/24/21 20:16 Dose: 20 mg Documented by: Hydromorphone HCl (Hydromorphone Hcl 1 Mg/Ml Syringe) 0.25 mg IVPUSH Q4H PRN; Protocol PRN Reason: Pain, Severe (Pain Scale 7-10) Last Admin: 09/25/21 08:29 Dose: 0.25 mg Documented by: Hydroxychloroquine Sulfate (Hydroxychloroquine Sulfate 200 Mg Tablet) 200 mg PO BID [facility] Last Admin: 09/25/21 07:47 Dose: 200 mg Documented by: Promethazine HCl 12.5 mg/ (Sodium Chloride) 50.5 mls @ 202 mls/hr IV ONCE PRN PRN Reason: Nausea and Vomiting Levothyroxine Sodium (Levothyroxine Sodium 50 Mcg Tablet) 50 mcg PO DAILY@0600 [facility] Last Admin: 09/25/21 05:31 Dose: 50 mcg Documented by: Lisinopril (Lisinopril 40 Mg Tablet) 40 mg PO BEDTIME [facility]; Protocol Last Admin: 09/24/21 20:16 Dose: 40 mg Documented by: Nifedipine (Nifedipine Er 30 Mg Tab.Er.24) 30 mg PO BEDTIME [facility] Last Admin: 09/24/21 20:16 Dose: 30 mg Documented by: Omeprazole (Omeprazole 20 Mg Capsule.Dr) 20 mg PO BEDTIME [facility] Last Admin: 09/24/21 20:15 Dose: 20 mg Documented by: Oxycodone HCl (Oxycodone Hcl Immed Release 5 Mg Tablet) 5 mg PO Q4H PRN PRN Reason: Pain, Moderate (Pain Scale 4-6 Last Admin: 09/25/21 05:30 Dose: 5 mg Documented by: Oxycodone HCl (Oxycodone Hcl Er 10 Mg Tab.Er.12h) 10 mg PO BID [facility] Last Admin: 09/25/21 07:47 Dose: 10 mg Documented by: Pramipexole Dihydrochloride (Pramipexole Di-Hcl 0.25 Mg Tablet) 0.25 mg PO BEDTIME [facility] Last Admin: 09/24/21 20:15 Dose: 0.25 mg Documented by: Sodium Chloride (0.9 % Sodium Chloride Flush 3 Ml Syringe) 3 ml IVFLUSH QSHIFT [facility] Last Admin: 09/25/21 07:03 Dose: Not Given Documented by: Time Spent With Patient Time: Total time spent is greater than 50% in coordination of care (as documented) at patient's floor/unit and/or counseling patient: Quality Stroke Does the patient have a stroke diagnosis?: No VTE Prior VTE?: No VTE Risk Level:: Surgical - very high VTE Device Contraindication: N/A - Device Ordered VTE Drug Contraindication: N/A - Med Ordered
--- NOTE | 2021-09-25 12:54 | MHC.CM.PN ---
PT REPORTS HE LIVES WITH HIS AND IS INDEPENDENT WITH CARE HE DENIES USING HOME SERVICES [employer] PT REPORTS HE USED ONLY A CPAP [employer] BUT HAS A CANE AND A WALKER IN CASE HE NEEDS THEM AT DC HE CONFIRMS HIS PCP IS ALBINO SOLIS HE DECLINES TO COMPLETE A HCP PT WILL NEED PHYSICAL THERAPY AT DC REFERRAL SENT TO [facility] PER PT PREFERENCES TO TRANSPORT AT DC
[2021-09-25] MEDS: 0.9 % Sodium Chloride Flush 3 ML SYRINGE IVFLUSH ×2 (17:09→20:05)
[2021-09-25] MEDS: Escitalopram Oxalate 20 MG TABLET PO (20:05)
[2021-09-25] MEDS: Omeprazole 20 MG CAPSULE.DR PO (20:05)
[2021-09-25] MEDS: Pramipexole Di-HCL 0.25 MG TABLET PO (20:05)
[2021-09-26] MEDS: HYDROmorphone HCl 1 MG/ML SYRINGE 0.25 MG IVPUSH (00:03)
[2021-09-26 03:25] VITALS: BP 116/60; PULSE 98; RESP 18; TEMP 36.8; O2SAT 94
--- NOTE | 2021-09-26 03:32 | PC.NURSE ---
Pt was up sitting asleep on a recliner when noted with SBP on the 80s-90s, pt awaken and denies any complaints, noted with concentrated urine in urinal, encouraged to drink fluids as tolerated, Dr. Meek was updated, BP meds held, BP went to 113/57.
[2021-09-26] MEDS: Levothyroxine Sodium 50 MCG TABLET PO (06:05)
[2021-09-26 06:29] LABS: MANUAL DIFF FLAG NO
[2021-09-26 06:48] LABS: Basophils Percent Auto 0.3 % (0-2); Eosinophils Percent Auto 0.3 % (0-4); Hematocrit 33.4 % (42.0-52.0); Hemoglobin 10.5 g/dl (14.0-18.0); Imm Gran Abs Auto 0.04 X10*3/uL (0.00-0.03); Imm Gran Pct Auto 0.4 % (0.0-0.4); Lymphocytes Percent Auto 8.8 % (20-40); Mean Corpuscular HGB Conc 31.4 g/dl (31.0-36.0); Mean Corpuscular Hemoglobin 29.8 pg (27.0-33.0); Mean Corpuscular Volume 94.9 fL (80.0-98.0); Mean Platelet Volume 10.7 fL (9.4-12.4); Neutrophils Absolute Auto 9.1 x10*3/uL (2.0-8.3); Neutrophils Percent Auto 81.2 % (45-73); Platelet Count 187 X10*3/uL (160-400); Red Blood Count 3.52 X10*6/uL (4.60-5.80); White Blood Count 11.2 X10*3/uL (4.8-10.8)
[2021-09-26 07:13] LABS: Anion Gap 12 (12-20); Blood Urea Nitrogen 29 mg/dL (9-16); Calcium 8.5 mg/dL (8.4-10.2); Carbon Dioxide 28 mmol/L (22-29); Chloride 101 mmol/L (96-108); Creatinine Clr Calc Pharmacy 105.8; Estimated Glomerular Filt Rate > 60; Glucose Fasting 127 mg/dL (60-99); Sodium 137 mmol/L (135-145)
[2021-09-26 07:47] VITALS: BP 100/52; PULSE 93; RESP 18; TEMP 37.2; O2SAT 94
--- NOTE | 2021-09-26 08:02 | P.DS_ITS ---
DS: Providers Provider Date of Service: 09/26/21 Date of admission: 09/24/21 10:18 Primary care physician: Chantale Trinidad MD Consults: 09/24/21 15:57 Consult to Hospitalist Routine Consulting Provider: Hospitalist Reason For Exam: routine medicl mangement DS: Diagnosis Discharge Diagnosis (1) HTN (hypertension): Status: Acute DS: Summary Hospital Course Hospital Course: The patient underwent a successful right total hip arthroplasty, they were transferred to PACU and then to the floor to recover. During their stay, their vitals were stable, afebrile at 98.3. Labs were unremarkable, H/H 10.5/33.4. POD 1 they were started on Aspirin 325mg po bid for DVT ppx, they also received Physical Therapy services twice a day. Prior to discharge, their dressing was changed, incision clean dry and intact, new Aquacel dressing applied and the plan was to be discharged home with VNA services. Time Spent with Patient Time attestation: Total time spent providing and/or coordinating discharge services: Discharge coordination time: Less than 30 minutes Quality: Safe Use of Opioids Does Pt have an Active Cancer Diagnosis on the Problem List?: No Quality: Stroke Does the patient have a stroke diagnosis?: No Physical Exam Vital Signs: Vital Signs: Last Vital Signs Temp 99 F 09/26/21 07:47 Pulse 93 09/26/21 07:47 Resp 18 09/26/21 07:47 BP 100/52 L 09/26/21 07:47 Pulse Ox 94 09/26/21 07:47 BMI result Body Mass Index 41.8 Const: General: cooperative, healthy appearing and no acute distress Resp: Effort & Inspection: normal respiratory effort and able to speak in complete sentences Cardio: Rate: regular rate Peripheral pulses: Peripheral pulses 2+ throughout GI: Palpation (GI): Soft to palpation Skin: Lesions: no lesions Rashes: no rashes Extrem: Other: Right hip no erythema or drainage. Bear intact. New Aquacel dressing applied. NVI. DS: Data Data Completed and Pending Pending studies at discharge: Pending at discharge 09/24/21 13:41 Surgical [PTH] Routine Labs on day of discharge: Laboratory Results - last 24 hr 09/26/21 09/26/21 06:13 06:13 WBC 11.2 H RBC 3.52 L Hgb 10.5 L Hct 33.4 L MCV 94.9 MCH 29.8 MCHC 31.4 RDW 14.0 Plt Count 187 MPV 10.7 Immature Gran % (Auto) 0.4 Neut % (Auto) 81.2 H Lymph % (Auto) 8.8 L [place] % (Auto) 9.0 Eos % (Auto) 0.3 Baso % (Auto) 0.3 Lymph # (Auto) 1.0 L [place] # (Auto) 1.0 Eos # (Auto) 0.0 Baso # (Auto) 0.0 Abs Immat Gran (auto) 0.04 H Absolute Neuts (auto) 9.1 H Absolute Nucleated RBC 0.000 Nucleated RBC % (auto) 0.0 Sodium 137 Potassium 4.0 Chloride 101 Carbon Dioxide 28 Anion Gap 12 BUN 29 H D Creatinine 1.13 Estim Creat Clear Calc 105.8 Estimated GFR > 60 Fasting Glucose 127 H Calcium 8.5 Discharge Plan Discharge Patient Disposition: Home Health Service Discharge Diagnosis: s/p RTHA Referrals: Charleen Chase PA-C [Physician [employer] Specialist] - 1 Week (10/09/21 at 12:45) Discharge Medications: New acetaminophen 325 mg Tablet 650 mg PO Q6H PRN (Reason: Pain, Mild (Pain Scale 1-3)) 30 Days Qty: 240 0RF aspirin 325 mg Tablet 325 mg PO BID 42 Days Qty: 84 0RF celecoxib 200 mg Capsule 200 mg PO BID 30 Days Qty: 60 0RF docusate sodium 100 mg Capsule 100 mg PO BID 30 Days Qty: 60 0RF oxycodone 5 mg Tablet 5 mg PO Q4H PRN (Reason: Pain, Moderate (Pain Scale 4-6) 7 Days Qty: 42 0RF Continued levothyroxine 50 mcg capsule 50 mcg PO DAILY 0RF escitalopram oxalate 20 mg tablet 20 mg PO BEDTIME 0RF pramipexole 0.25 mg tablet 0.25 mg PO BEDTIME 0RF pantoprazole 40 mg tablet,delayed release (DR/EC) 40 mg PO BEDTIME 0RF yeqydswfkd-sccrzfjxmssxx-qque 50-300-40 mg capsule 1 cap PO Q8H PRN (Reason: Headache) 0RF diazepam 2 mg tablet 2 mg PO BEDTIME PRN (Reason: Anxiety) 0RF lisinopril 40 mg tablet 40 mg PO BEDTIME 0RF nifedipine 30 mg tablet extended release 30 mg PO BEDTIME 0RF hydroxychloroquine 200 mg tablet 200 mg PO BID 0RF Discontinued oxycodone 5 mg tablet 0.5 tab PO Q8H PRN (Reason: pain) 0RF ibuprofen 600 mg tablet 600 mg PO Q8H PRN (Reason: Pain) 0RF diclofenac sodium 75 mg tablet,delayed release (DR/EC) 75 mg PO BID 0RF Discharge Orders: Discharge Order (Routine); Ordered 09/26/21 Ordered By: Charleen Chase Diet: regular diet Activity on Discharge: Use cane or walker Stand Alone Forms: Patient Portal Discharge page Care Plan Goals: restore fxn to rigth hip Health Concerns: none Plan of Treatment: Physical Therapy for total hip arthroplasty: posterior precautions, gait training, ROM, strength Limit stair climbing No showering, no tub bath-keep dressing clean, dry and intact No driving x6 weeks Continue Aspirin tabs once a day x 6 weeks Follow up with [facility] Orth[facility]ics in 2 weeks Assessment: stable for d/c
[2021-09-26] MEDS: oxyCODONE HCl ER 10 MG TAB.ER.12H PO (08:17)
[2021-09-26] MEDS: Hydroxychloroquine Sulfate 200 MG TABLET PO (08:17)
[2021-09-26] MEDS: 0.9 % Sodium Chloride Flush 3 ML SYRINGE IVFLUSH (08:17)
[2021-09-26] MEDS: Celecoxib 200 MG CAPSULE PO (08:17)
[2021-09-26] MEDS: Docusate Sodium 100 MG CAPSULE PO (08:18)
[2021-09-26] MEDS: Aspirin 325 MG TABLET PO (08:18)
--- NOTE | 2021-09-26 08:38 | MHC.CM.PN ---
PT WILL DC HOME TODAY WITH [facility] PH[facility]ICAL [facility]ERAPY [facility] FAMILY TO TRANSPORT
[2021-09-26 08:52] VITALS: BP 100/52; PULSE 93; O2SAT 94
--- NOTE | 2021-09-26 09:19 | P.PNIM_ITS ---
Subjective Subjective Date of Service: 09/26/21 Interval History: F/u on HTN, Post op d1 for right GENESIS doing fine with no pain issues, looking forward to going home this morning Review of Systems Gen: no fever Resp: no sob, no cough CV: no chest, no CONTRERAS, no leg edema GI: No n/v, no abd pain Neuro: No confusion Physical Exam Vital Signs: Vital Signs: Last Vital Signs Temp 99 F 09/26/21 07:47 Pulse 93 09/26/21 08:52 Resp 18 09/26/21 07:47 BP 100/52 L 09/26/21 08:52 Pulse Ox 94 09/26/21 08:52 BMI result Body Mass Index 41.8 Const: Other: General: AO X 3, no acute distress Resp: CTA bilateral CVS: S1,S2,RRR GI: +BS, NT, no distention Skin: No rash, no rash, incicison site clean, right leg is much bigger ext: noted swelling in the right leg which he admits to be chronic Neuro: motor grossly intact Psych: appropriate affect Objective Data Active Medications Acetaminophen (Acetaminophen 325 Mg Tablet) 650 mg PO Q6H PRN PRN Reason: Pain, Mild (Pain Scale 1-3) Last Admin: 09/25/21 17:07 Dose: 650 mg Documented by: GEOVANY Acetaminophen/Butalbital/Caffeine (Butalb/Acetamin/Caff 50/325/40 Tablet) 1 tab PO Q8H PRN PRN Reason: Headache Last Admin: 09/24/21 23:43 Dose: 1 tab Documented by: NITA Aspirin (Aspirin 325 Mg Tablet) 325 mg PO BID [facility] Last Admin: 09/26/21 08:18 Dose: 325 mg Documented by: WENDY Celecoxib (Celecoxib 200 Mg Capsule) 200 mg PO BID [facility] Last Admin: 09/26/21 08:17 Dose: 200 mg Documented by: WENDY Diazepam (Diazepam 2 Mg Tablet) 2 mg PO BEDTIME PRN PRN Reason: Anxiety Docusate Sodium (Docusate Sodium 100 Mg Capsule) 100 mg PO BID [facility] Last Admin: 09/26/21 08:18 Dose: 100 mg Documented by: WENDY Escitalopram Oxalate (Escitalopram Oxalate 20 Mg Tablet) 20 mg PO BEDTIME [facility] Last Admin: 09/25/21 20:05 Dose: 20 mg Documented by: BETY Hydromorphone HCl (Hydromorphone Hcl 1 Mg/Ml Syringe) 0.25 mg IVPUSH Q4H PRN; Protocol PRN Reason: Pain, Severe (Pain Scale 7-10) Last Admin: 09/26/21 00:03 Dose: 0.25 mg Documented by: BETY Hydroxychloroquine Sulfate (Hydroxychloroquine Sulfate 200 Mg Tablet) 200 mg PO BID [facility] Last Admin: 09/26/21 08:17 Dose: 200 mg Documented by: WENDY Promethazine HCl 12.5 mg/ (Sodium Chloride) 50.5 mls @ 202 mls/hr IV ONCE PRN PRN Reason: Nausea and Vomiting Levothyroxine Sodium (Levothyroxine Sodium 50 Mcg Tablet) 50 mcg PO DAILY@0600 [facility] Last Admin: 09/26/21 06:05 Dose: 50 mcg Documented by: BETY Lisinopril (Lisinopril 40 Mg Tablet) 40 mg PO BEDTIME [facility]; Protocol Last Admin: 09/25/21 20:20 Dose: Not Given Documented by: BETY Non-Admin Reason: Physician Approved Nifedipine (Nifedipine Er 30 Mg Tab.Er.24) 30 mg PO BEDTIME [facility] Last Admin: 09/25/21 20:20 Dose: Not Given Documented by: BETY Non-Admin Reason: Physician Approved Omeprazole (Omeprazole 20 Mg Capsule.Dr) 20 mg PO BEDTIME [facility] Last Admin: 09/25/21 20:05 Dose: 20 mg Documented by: BETY Oxycodone HCl (Oxycodone Hcl Immed Release 5 Mg Tablet) 5 mg PO Q4H PRN PRN Reason: Pain, Moderate (Pain Scale 4-6 Last Admin: 09/25/21 17:07 Dose: 5 mg Documented by: DABMadie Oxycodone HCl (Oxycodone Hcl Er 10 Mg Tab.Er.12h) 10 mg PO BID [facility] Last Admin: 09/26/21 08:17 Dose: 10 mg Documented by: WENDY Pramipexole Dihydrochloride (Pramipexole Di-Hcl 0.25 Mg Tablet) 0.25 mg PO BEDTIME [facility] Last Admin: 09/25/21 20:05 Dose: 0.25 mg Documented by: BETY Sodium Chloride (0.9 % Sodium Chloride Flush 3 Ml Syringe) 3 ml IVFLUSH QSHIFT [facility] Last Admin: 09/26/21 08:17 Dose: 3 ml Documented by: WENDY Labs CBC & Chem 7: 09/26/21 06:13 09/26/21 06:13 Labs: Laboratory Results - last 24 hr 09/26/21 09/26/21 06:13 06:13 MCV 94.9 MCH 29.8 MCHC 31.4 RDW 14.0 Plt Count 187 MPV 10.7 Immature Gran % (Auto) 0.4 Neut % (Auto) 81.2 H Lymph % (Auto) 8.8 L [place] % (Auto) 9.0 Eos % (Auto) 0.3 Baso % (Auto) 0.3 Lymph # (Auto) 1.0 L [place] # (Auto) 1.0 Eos # (Auto) 0.0 Baso # (Auto) 0.0 Abs Immat Gran (auto) 0.04 H Absolute Neuts (auto) 9.1 H Absolute Nucleated RBC 0.000 Nucleated RBC % (auto) 0.0 Anion Gap 12 Estim Creat Clear Calc 105.8 Estimated GFR > 60 Fasting Glucose 127 H Calcium 8.5 Assessment and Plan (1) HTN (hypertension): Status: Acute Plan s/p elective R GENESIS 1/HTN--BP on lower side this morning, hold meds 2/HypOthyrodisim--continue levothyroxine 3/GERD--PPI 4/h/o Migrane--pedro active 5/right leg edema has had work up including DVT studies 6/h/o migraine.. no recent flare 7/s/p R GENESIS, management per ortho DVT--to be determined by ortho Quality Stroke Does the patient have a stroke diagnosis?: No VTE Prior VTE?: No VTE Risk Level:: Medical - moderate - high VTE Device Contraindication: N/A - Device Ordered VTE Drug Contraindication: N/A - Med Ordered
[2021-09-26 11:17] VITALS: BP 90/44; PULSE 95; RESP 18; TEMP 36.6; O2SAT 92
[2021-09-26] MEDS: 0.9 % Sodium Chloride 1,000 ML 999 ML IV (11:53)
[2021-09-26 13:00] VITALS: O2SAT 91
[2021-09-26 13:04] VITALS: BP 90/54
== END 2021-09-26 15:28 | disposition home health service (06) | DRG 470 ==
LOC: HO.SSSA 11:05 → HO.S3 12:21
PROVIDERS: Physician Assistant; Admitting Provider Orthopaedic Surgery; PCP Internal Medicine; Visit Provider Orthopaedic Surgery
PROC: 0SR903A Replacement of Right Hip Joint with Ceramic Synthetic Substitute, Uncemented, Open Approach (ICD-10-PCS; CPT 27130; principal; 2021-09-24 12:00)
DX: M16.11 Unilateral primary osteoarthritis, right hip (principal); I10 Essential (primary) hypertension; R60.0 Localized edema; G43.909 Migraine, unspecified, not intractable, without status migrainosus; E03.9 Hypothyroidism, unspecified; K21.9 Gastro-esophageal reflux disease without esophagitis; Z96.642 Presence of left artificial hip joint; Z20.822 Contact with and (suspected) exposure to COVID-19; Z88.6 Allergy status to analgesic agent; Z79.899 Other long term (current) drug therapy
CPT/HCPCS: 36415; 72170; 80048; 85025; 86850; 86900; 86901; 87635; 87640; 87641; 88304; 88311; 97110; 97162; 97165; 97530; C1776; J0131; J0690; J1100; J1170; J2250; J2405; J3010

== ENCOUNTER → 2021-09-30 10:42 | Outpatient (BNVA) | payer OTHER, SELFPAY | PROVIDERS: PCP Internal Medicine; Visit Provider Physician Assistant | DX: Z13.89 Encounter for screening for other disorder (principal) ==

== ENCOUNTER → 2021-10-09 12:37 | Outpatient (BNVA) | payer OTHER, SELFPAY | PROVIDERS: PCP Internal Medicine; Visit Provider Physician Assistant | DX: Z13.89 Encounter for screening for other disorder (principal) ==

== ENCOUNTER 2021-10-20 15:00 | Outpatient (RCR) | payer OTHER, SELFPAY ==
--- NOTE | 2021-10-09 13:23 | MHC.PT.EP ---
[facility] [place] Office [place] Office [place] Office [address] Karlo Tejada [address] [phone] F: [phone] F: [phone] F: [phone] F: [phone] Physical Therapy Plan of Care Date of Evaluation: Date of Surgery: 09/24/21 Diagnosis: S/P Rt THR Assessment: 56 YO MALE REF TO PT S/P Rt THR, POSTERIOR APPROACH ON 09/24/21 (HOME PT THRU 10/08/21). HE IS CURRENTLY AMB W A STRAIGHT CANE, HE RESIDES W IN 2 LEVEL HOME - HIS LOU WERE REMOVED 10/09/21. OBJECTIVE FINDINGS: HEALING INCISION Rt LAT HIP, ROM DEFICITS IN TRUNK/ HIP/ EXT/ ANKLE; MUSCLE/ SOFT TISSUE IMBALANCE CREATING ASYM IN LUMBOPELVIC COMPLEX -> LLI, AND WEAKNESS IN HIS PROX LEs/ CORE REGION. FUNCTIONAL LIMITATIONS INCLUDE DIFFIC W INCR AMB, STANDING, SLEEPING IN RECLINER - HE DEMON INCR UEs EFFORT W TRANSFERS AND ALTERED GAIT MECHANICS. Pt IS A WONDERFUL PT CANDIDATE S/P THR , TO ADDRESS THE ABOVE FINDINGS AND SOFT TISSUE IMBALANCE , WELL DEV A HEP AND GUIDING Pt TO IMPROVE HIS FUNCTIONAL INDEP ALONG POST OP COURSE, HIS ULTIMATE GOAL IS TO RTW. Frequency and Duration: The patient will be seen 2 x WK x 8 WKS Short Term Goals: Pt'S Rt HIP PAIN DECREASED TO 2-3/10 IN 2 WKS Pt DEMON WFL AROM HIP EXT AND ANKLE DF/PF IN 3 WKS Pt DEMO IMPROVED GAIT MECH W LEAST RESTRICTIVE AD ON LEVEL GROUND AND STAIRS IN 3 WKS Financial Management Consultant Goals: Pt INDEP W HEP PROGRESSION AND SELF-SX MGMT STRATEGIES IN 8 WKS Pt RESUME REG ADLs EVIDENT W IMPROVED LEFI SCORE BY 8-10 POINTS (AT EVAL34/80 ) IN 8 WKS Pt INCR LE STRENGTH BY 1 GRADE IN 8 WKS Pt DEMON PROPER MECHANICS/ THR APPROP W WORK SIMUL TASKS IN 8 WKS Treatment Plan: Modalities to reduce pain, spasms and effusion. Manual therapy to restore motion and function. Therapeutic exercise to improve strength and flexibility. Neuromuscular re-education for posture and balance. Therapeutic activities to return to functional activities of daily living. Electronically signed by: Charley Rdz PT Please sign and return to therapist. Thank you for your referral.
--- NOTE | 2021-11-21 15:30 | MHC.PT.DC ---
[facility] [place] Office [place] Office [place] Office [address] Karlo Tejada [address] [phone] F: [phone] F: [phone] F: [phone] F: [phone] Physical Therapy Discharge Report Diagnosis: S/P Rt THR Date of Surgery: 09/24/21 Date of Evaluation: 10/09/21 Date of Discharge: 11/21/21 Treatments to Date: 2 Cancellations to Date: No Shows to Date: Discharge Status: Patient Elected to Stop Discharge Summary: AT LAST APPT, Pt MOHAMUD NOLEN- AN HEP WAS INITIATED - Pt DID NOT MEET GOALS, DESPITE CUES RE CONT IN PT Electronically signed by: Charley Rdz,PT Please sign and return to therapist. Thank you for your referral.
== END 2021-11-21 15:29 | disposition home or self-care (01) ==
LOC: HO.PT 15:00
PROVIDERS: Visit Provider Physician Assistant
DX: Z47.1 Aftercare following joint replacement surgery (principal); Z96.641 Presence of right artificial hip joint
CPT/HCPCS: 97110; 97162; 97530

== ENCOUNTER → 2021-11-13 14:56 | Outpatient (BNVA) | payer OTHER, SELFPAY | PROVIDERS: PCP Internal Medicine; Visit Provider Physician Assistant | DX: Z13.89 Encounter for screening for other disorder (principal) ==

== ENCOUNTER 2021-12-25 11:50 | Outpatient (REF) | payer OTHER, SELFPAY ==
--- NOTE | ~2021-12-25 | XR_ITS ---
EXAMINATION: XR PELVIS CLINICAL INFORMATION: Pain. COMPARISON: None TECHNIQUE: 2 AP views of the pelvis are submitted. FINDINGS: Prosthetic components of the bilateral total hip arthroplasties are appropriately aligned, without periprosthetic fracture or abnormal lucency. No component migration. Soft tissues are normal. An ingested tablet is seen in the vicinity of the descending colon. No fracture or dislocation is seen. Sacroiliac joints are normal. Pubic symphysis is intact. No abnormal soft tissue calcifications. There are prostate calcifications and pelvic phleboliths. There are incompletely characterized degenerative changes of the lower lumbar spine. XR/XR pelvis 1-2V IMPRESSION: Appropriate alignment of the bilateral total hip arthroplasties, without surrounding abnormalities.
== END 2021-12-25 11:51 | disposition home or self-care (01) ==
LOC: HO.HOSX 11:50
PROVIDERS: Visit Provider Orthopaedic Surgery
DX: M25.559 Pain in unspecified hip (principal)
CPT/HCPCS: 72170

== ENCOUNTER 2022-06-05 12:45 | Outpatient (REF) | payer OTHER, SELFPAY ==
--- NOTE | ~2022-06-05 | US_ITS ---
EXAMINATION: RIGHT AND LEFT LOWER EXTREMITY VENOUS ULTRASOUND (REFLUX EXAM) CLINICAL INDICATION: Varicose veins right lower extremity with inflammation. COMPARISON: None. TECHNIQUE: Color flow triplex imaging and compression Doppler was performed to evaluate both the deep and the superficial systems bilaterally. To evaluate the superficial system, the examination was performed in the upright position. Color-flow Doppler ultrasound and compression ultrasound were utilized. In addition, maneuvers were utilized to demonstrate reflux. FINDINGS: 1. DEEP VENOUS ULTRASOUND OF THE RIGHT LOWER EXTREMITY: Respiratory variation, normal compression and augmented flow are noted in the right common femoral vein as well as the right popliteal vein and there is no evidence of deep venous thrombosis at these locations. There is no evidence of reflux in the deep system in either the common femoral vein or the popliteal vein. There is no evidence of a Jain's cyst. 2. SUPERFICIAL ULTRASOUND WITH DOPPLER OF RIGHT LOWER EXTREMITY: The right great saphenous vein at the saphenofemoral junction measures 9 mm, at the midthigh 3 mm, pihep-htp-wods 4 mm, pvukm-fvt-tjap 3 mm, at midcalf 2 mm and at the ankle measures 4 mm. There is no reflux demonstrated in the right great saphenous vein. The right small saphenous vein measures 6 mm and shows no reflux. 3. DEEP VENOUS ULTRASOUND OF THE LEFT LOWER EXTREMITY: Respiratory variation, normal compression and augmented flow are noted in the left common femoral vein as well as the left popliteal vein and there is no evidence of deep venous thrombosis at these locations. There is no evidence of reflux in the deep system in either the common femoral vein or the popliteal vein. There is no evidence of a Jain's cyst. 4. SUPERFICIAL ULTRASOUND WITH DOPPLER OF LEFT LOWER EXTREMITY: Left great saphenous vein at the saphenofemoral junction measures 10 mm, at the midthigh 3 mm, mwanx-gam-hlrx 3 mm, dprwy-kcg-qxyk 2 mm, at midcalf 2 mm and at the ankle measures 3 mm. The only region of reflux identified is in the mid thigh with time duration of 0.8 seconds. The left small saphenous vein measures 4 mm and shows no reflux. US/US venous duplex LE BI IMPRESSION: 1. No evidence of reflux or thrombus in the common femoral veins or popliteal veins bilaterally. 2. The saphenous systems are competent bilaterally except for reflux in the left mid thigh as described.
== END 2022-06-05 12:46 | disposition home or self-care (01) ==
LOC: HO.US 12:45
PROVIDERS: PCP Internal Medicine; Visit Provider Surgery Vascular Surgery
DX: I83.11 Varicose veins of right lower extremity with inflammation (principal)
CPT/HCPCS: 93970

== ENCOUNTER → 2022-06-11 13:49 | Outpatient (BNVA) | payer OTHER, SELFPAY | PROVIDERS: PCP Internal Medicine; Visit Provider Surgery Vascular Surgery | DX: I83.11 Varicose veins of right lower extremity with inflammation (principal) ==

== ENCOUNTER → 2022-06-22 13:56 | Outpatient (BNVA) | payer OTHER, SELFPAY | PROVIDERS: PCP Internal Medicine; Visit Provider Internal Medicine Rheumatology | DX: Z13.89 Encounter for screening for other disorder (principal) ==

== ENCOUNTER 2022-07-18 08:37 | Outpatient (REF) | payer OTHER, SELFPAY ==
--- NOTE | ~2022-07-18 | XR_ITS ---
EXAMINATION: XR HAND, RIGHT CLINICAL INFORMATION: Pain. COMPARISON: None TECHNIQUE: PA, lateral, and oblique views of the right hand. FINDINGS: Bony alignment and mineralization are normal. There is a mild ulnar minus variance. There is marked osteoarthritic change of the first carpometacarpal joint. The proximal and distal carpal rows are intact. There is minimal osteoarthritic change of the interphalangeal joint of the right thumb. No fracture or dislocation is seen. No focal bone erosion is seen. A tiny well marginated cyst is incidentally noted within the second metatarsal head. There are tiny linear radiopaque foreign bodies noted within the distal second through fifth fingers. XR/XR hand LT min 3V IMPRESSION: 1. There is marked osteoarthritic change of the right first carpometacarpal joint. 2. There is minimal osteoarthritic change of the interphalangeal joint of the right thumb. 3. Tiny linear radiopaque foreign bodies are seen in the soft tissues of the distal second through fifth fingers. EXAMINATION: XR HAND, LEFT CLINICAL INFORMATION: Pain. COMPARISON: None TECHNIQUE: PA, lateral, and oblique views of the left hand. FINDINGS: Bony alignment and mineralization are normal. There is a neutral ulnar variance. There is marked osteoarthritic change of the first carpometacarpal joint. No fracture or dislocation is seen. No abnormal bone erosion is noted. In the hypothenar eminence, a 3 mm semilunar radiopaque foreign body is noted. IMPRESSION: 1. There is marked osteoarthritic change of the left first carpometacarpal joint. 2. A 3 mm radiopaque foreign body is noted within the left hypothenar eminence.
--- NOTE | ~2022-07-18 | XR_ITS ---
EXAMINATION: XR HAND, RIGHT CLINICAL INFORMATION: Pain. COMPARISON: None TECHNIQUE: PA, lateral, and oblique views of the right hand. FINDINGS: Bony alignment and mineralization are normal. There is a mild ulnar minus variance. There is marked osteoarthritic change of the first carpometacarpal joint. The proximal and distal carpal rows are intact. There is minimal osteoarthritic change of the interphalangeal joint of the right thumb. No fracture or dislocation is seen. No focal bone erosion is seen. A tiny well marginated cyst is incidentally noted within the second metatarsal head. There are tiny linear radiopaque foreign bodies noted within the distal second through fifth fingers. XR/XR hand RT min 3V IMPRESSION: 1. There is marked osteoarthritic change of the right first carpometacarpal joint. 2. There is minimal osteoarthritic change of the interphalangeal joint of the right thumb. 3. Tiny linear radiopaque foreign bodies are seen in the soft tissues of the distal second through fifth fingers. EXAMINATION: XR HAND, LEFT CLINICAL INFORMATION: Pain. COMPARISON: None TECHNIQUE: PA, lateral, and oblique views of the left hand. FINDINGS: Bony alignment and mineralization are normal. There is a neutral ulnar variance. There is marked osteoarthritic change of the first carpometacarpal joint. No fracture or dislocation is seen. No abnormal bone erosion is noted. In the hypothenar eminence, a 3 mm semilunar radiopaque foreign body is noted. IMPRESSION: 1. There is marked osteoarthritic change of the left first carpometacarpal joint. 2. A 3 mm radiopaque foreign body is noted within the left hypothenar eminence.
[2022-07-18 08:50] LABS: MANUAL DIFF FLAG NO
[2022-07-18 10:07] LABS: Basophils Absolute Auto 0.1 X10*3/uL (0.0-0.2); Basophils Percent Auto 0.8 % (0-2); Eosinophils Absolute Auto 0.1 X10*3/uL (0.0-0.4); Eosinophils Percent Auto 1.8 % (0-4); Hematocrit 40.2 % (42.0-52.0); Hemoglobin 12.7 g/dl (14.0-18.0); Imm Gran Abs Auto 0.02 X10*3/uL (0.00-0.03); Imm Gran Pct Auto 0.3 % (0.0-0.4); Lymphocytes Percent Auto 29.5 % (20-40); Mean Corpuscular HGB Conc 31.6 g/dl (31.0-36.0); Mean Corpuscular Hemoglobin 29.3 pg (27.0-33.0); Mean Corpuscular Volume 92.8 fL (80.0-98.0); Mean Platelet Volume 10.7 fL (9.4-12.4); Monocytes Absolute Auto 0.6 X10*3/uL (0.1-1.2); Monocytes Percent Auto 9.1 % (2-11); Neutrophils Absolute Auto 3.9 x10*3/uL (2.0-8.3); Neutrophils Percent Auto 58.5 % (45-73); Platelet Count 203 X10*3/uL (160-400); Red Blood Count 4.33 X10*6/uL (4.60-5.80); Red Cell Distribution Width 13.2 % (11.0-16.0); White Blood Count 6.6 X10*3/uL (4.8-10.8)
[2022-07-18 11:04] LABS: Erythrocyte Sedimentation Rate 12 MM/HR (0-15)
[2022-07-18 12:35] LABS: C Reactive Protein 0.62 mg/dL (< or = 0.50); Rheumatoid Factor < 13.0 IU/mL (<15.0)
[2022-07-22 17:38] LABS: Cyclic Citrullinated Peptide <16 UNITS
== END 2022-07-18 08:38 | disposition home or self-care (01) ==
LOC: HO.LAB 08:37
PROVIDERS: PCP Internal Medicine; Visit Provider Internal Medicine Rheumatology
DX: M79.642 Pain in left hand (principal); M79.641 Pain in right hand; Z96.641 Presence of right artificial hip joint
CPT/HCPCS: 36415; 73130; 85025; 85652; 86140; 86200; 86431

== ENCOUNTER 2022-09-21 11:49 | Outpatient (REF) | payer OTHER, SELFPAY | END 2022-09-21 11:50 | disposition home or self-care (01) | LOC: HO.HOSX 11:49 | PROVIDERS: Visit Provider Orthopaedic Surgery | DX: Z13.89 Encounter for screening for other disorder (principal) ==

== ENCOUNTER → 2022-11-16 14:41 | Outpatient (BNVA) | payer OTHER, SELFPAY | PROVIDERS: PCP Internal Medicine; Visit Provider Internal Medicine Rheumatology ==

== ENCOUNTER 2023-08-09 19:01 | Emergency (ER) | payer OTHER, SELFPAY ==
--- NOTE | ~2023-08-09 | CT_ITS ---
EXAMINATION: CT HEAD WITHOUT CONTRAST CT CERVICAL SPINE WITHOUT CONTRAST CLINICAL INFORMATION: Syncope with head strike. COMPARISON: None. TECHNIQUE: Contiguous axial imaging was performed from the skullbase to vertex without intravenous administration of contrast. Multidetector helical imaging was performed through the cervical spine. This CT examination was performed using dose optimization techniques as appropriate, variously including the following: *Automated exposure control *Adjustment of mA and/or kV according to patient size (this includes techniques or standardized protocols for targeted exams where dose is matched to indication/reason for exam; i.e. extremities or head) *Use of iterative reconstruction technique DLP: 1382 mGy-cm. FINDINGS: HEAD: There is no evidence of acute intracranial hemorrhage or territorial infarction. No abnormal mass effect or midline shift is seen. Ortega to white matter differentiation is well preserved. No extra-axial fluid collections are identified. The ventricles are normal in size. Brain parenchymal attenuation is normal. The osseous structures and soft tissues are normal. The mastoid air cells and visualized portions of the paranasal sinuses are well aerated. CERVICAL SPINE: No acute fracture is identified in the cervical spine. There is a minimal anterolisthesis at the C5-C6 level. Mild multilevel endplate spurring noted with facet arthropathy. Mild reversal of the normal cervical lordosis. The atlantoaxial articulation is normally maintained. The paraspinal soft tissues are normal. The lung apices are clear. The thyroid gland is heterogeneous in attenuation without a discrete measurable lesion. Small calcification visible in the right thyroid lobe. CT/CT cervical spine wo IV con IMPRESSION: 1. No acute intracranial pathology. 2. No evidence of acute cervical spine traumatic injury.
[2023-08-09 19:52] VITALS: BP 168/94; PULSE 76; RESP 20; TEMP 36.8; O2SAT 98; BMI 42.0
--- NOTE | 2023-08-09 19:53 | ED.FALL ---
HPI - Fall General Chief Complaint: Fall Stated Complaint: fell yesterday 08/08 hit head Time Seen by Provider: 08/10/23 00:16 Source: patient Mode of arrival: ambulatory Limitations: no limitations History of Present Illness HPI Narrative: Patient history of hypertension takes clonidine p.r.n. for elevated blood pressure last night around midnight patient's blood pressure was 197/109 so he took 0.1 mg clonidine at 01:00 patient was going to the bathroom felt lightheaded sat down on the toilet seat next and he found himself on the ground when woke up blood pressure was 80/60 slowly it improved went to see his PCP was him to go ER to get the CT scan done all day otherwise patient has been feeling fine feeling sleepy with mild headache no chest pain no palpitation Related Data Home Medications Medication Instructions Recorded Confirmed [id number]-[id number]-egbrcaza 1 cap PO Q8H PRN Headache 06/27/21 11/16/22 50 mg-300 mg-40 mg capsule diazepam 2 mg tablet 2 mg PO BEDTIME PRN Anxiety 06/27/21 11/16/22 escitalopram oxalate 20 mg tablet 20 mg PO BEDTIME 06/27/21 11/16/22 levothyroxine 50 mcg capsule 50 mcg PO DAILY 06/27/21 11/16/22 lisinopril 40 mg tablet 40 mg PO BEDTIME 06/27/21 11/16/22 nifedipine 30 mg tablet,extended 30 mg PO BEDTIME 06/27/21 11/16/22 release pantoprazole 40 mg tablet,delayed 40 mg PO BEDTIME 06/27/21 11/16/22 release pramipexole 0.25 mg tablet 0.25 mg PO BEDTIME 06/27/21 11/16/22 ascorbic acid (vitamin C) 1,000 mg 1 g PO DAILY 06/22/22 11/16/22 capsule cholecalciferol (vitamin D3) 50 50 mcg PO DAILY 06/22/22 11/16/22 mcg (2,000 unit) capsule cyanocobalamin (vitamin B-12) 1,000 mcg PO DAILY 06/22/22 11/16/22 1,000 mcg capsule diclofenac sodium 1 % topical gel 2 g topical QID 06/22/22 11/16/22 (Voltaren Arthritis Pain) diclofenac sodium 75 mg 75 mg PO BID PRN 06/22/22 11/16/22 tablet,delayed release multivitamin 1 tab PO DAILY 06/22/22 11/16/22 potassium chloride 20 mEq 20 meq PO DAILY 06/22/22 11/16/22 tablet,extended release Previous Rx's Medication Instructions Recorded acetaminophen 325 mg tablet 650 mg (2 x 325 mg) PO Q6H PRN 09/26/21 Pain, Mild (Pain Scale 1-3) 30 days #240 tabs Allergies Allergy/AdvReac Type Severity Reaction Status Date / Time piroxicam [PIROXICAM] Allergy Intermediate NOSEBLEEDS Verified 08/09/23 19:51 [facility] Past Medical History Medical History Low vitamin D level IFG (impaired fasting glucose) Primary osteoarthritis of right hip Scoliosis Degenerative disc disease Osteoarthritis Overactive bladder Sleep apnea Migraines GERD (gastroesophageal reflux disease) Hypothyroid Depression Low testosterone in male HTN (hypertension) Surgical History History of nasal surgery Hx of total hip arthroplasty Hx of hernia repair Hx of colonoscopy Social History Social History Household Members: Spouse Housing: House Are you a primary school child care attendant to a significant other at home: No Do you presently have visiting nurse or other home services: No Alcohol intake: never Comment: aware of trip hazard Patient Tobacco Use Status: Never used Tobacco Second Hand Smoke Exposure: Yes () Advance Directives: No Advance Directives Information Provided: No service: Yes Current occupational status: employed Physical Exam Vital Signs: Vital Signs: Last Vital Signs Temp 98.7 F 08/10/23 00:28 Pulse 76 08/10/23 00:28 Resp 18 08/10/23 00:28 BP 174/81 H 08/10/23 00:28 Pulse Ox 98 08/10/23 00:28 O2 Del Method Room Air 08/10/23 00:28 BMI result Body Mass Index 42.0 Appearance: Alert. Oriented X3. No acute distress. Eyes: PERRLA, No Nystagmus ENT: Pharynx normal. Oral Mucosa moist soft tissue swelling right forehead Neck: Normal inspection. Neck supple. CVS: Normal heart rate and rhythm. Pulses normal. Respiratory: No respiratory distress. Equal air entry bilateral, no wheezing/rales/rhonchi Abdomen: Soft and nontender. Bowel sounds are present, no mass palpable, no CVA tenderness Skin: Skin warm and dry. Normal skin color. Normal skin turgor. Extremities: No lower extremity edema. No calf tenderness Neuro: Oriented X 3. No motor deficit. No sensory deficit.No cerebellar signs , cranial nerves II-XII intact Course Course Course Narrative: RME:?57 yo male hx HTN here for evaluation of head pain s/p syncopal episode yesterday. admits his BP was high yesterday- took a clonidine that his PCP prescribed him. one hour later he went to use the bathroom, felt nauseated and dizzy. the next thing he knew he was lying on the floor. unknown down time. no thinners. BP at that time was noted to be 80s/50s. admits to bump to the back of his head. Takes lisinopril and nifedipine every night. spoke with pcp who advised to come to the ED. labs, ekg, imaging ordered Full HPI, ROS and PE to be performed by the primary ED provider. Medical Decision Making Medical Decision Making [facility] Narrative: Patient with transient hypotension secondary to medication which improved during the daytime at this time blood pressure stable CT scan of the head and C-spine negative labs are stable discharge patient home advised to be more cautious when he take clonidine Differential Diagnosis Differential Diagnoses: The differential diagnosis associated with the presentation includes Vasovagal syncope/hypotension Admission/Observation Consideration of admission/observation: Escalation of care including admission/observation considered Lab Data [facility] Lab Attestation statement: I reviewed the patient's lab results. 08/09/23 20:12 08/09/23 20:12 Labs: Lab Results 08/09/23 Range/Units 20:12 WBC 7.3 (4.8-10.8) X10*3/uL RBC 4.33 L (4.60-5.80) X10*6/uL Hgb 12.9 L (14.0-18.0) g/dl Hct 39.0 L (42.0-52.0) % MCV 90.1 (80.0-98.0) fL MCH 29.8 (27.0-33.0) pg MCHC 33.1 (31.0-36.0) g/dl RDW 13.3 (11.0-16.0) % Plt Count 191 (160-400) X10*3/uL MPV 9.9 (9.4-12.4) fL Immature Gran % (Auto) 0.4 (0.0-0.4) % Neut % (Auto) 73.7 H (45-73) % Lymph % (Auto) 16.8 L (20-40) % Gregory % (Auto) 7.8 (2-11) % Eos % (Auto) 1.0 (0-4) % Baso % (Auto) 0.3 (0-2) % Lymph # (Auto) 1.2 (1.2-4.9) X10*3/uL Gregory # (Auto) 0.6 (0.1-1.2) X10*3/uL Eos # (Auto) 0.1 (0.0-0.4) X10*3/uL Baso # (Auto) 0.0 (0.0-0.2) X10*3/uL Abs Immat Gran (auto) 0.03 (0.00-0.03) X10*3/uL Absolute Neuts (auto) 5.4 (2.0-8.3) x10*3/uL Absolute Nucleated RBC 0.000 (0.0-0.012) X10*3/uL Nucleated RBC % (auto) 0.0 (0.0-0.2) /100WBC PT 11.6 (11.1-13.3) SEC INR 1.0 (0.9-1.1) Sodium 142 (135-145) mmol/L Potassium 3.7 (3.3-5.1) mmol/L Chloride 108 (96-108) mmol/L Carbon Dioxide 28 (22-29) mmol/L Anion Gap 10 L (12-20) BUN 12 (9-16) mg/dL Creatinine 0.81 (0.5-1.4) mg/dL Estim Creat Clear Calc 146.3 Estimated GFR > 60 Random Glucose 118 H (60-115) mg/dL Calcium 8.9 (8.4-10.2) mg/dL Magnesium 2.0 (1.6-2.6) mg/dL Total Bilirubin 0.5 (0.0-1.0) mg/dL AST 21 (5-37) U/L ALT 26 (0-40) U/L Alkaline Phosphatase 93 (39-117) U/L Total Creatine Kinase 120 (38-174) U/L Troponin I High Sens < 2.7 (<3.5-35.0) ng/L Total Protein 6.6 (6.5-8.0) g/dL Albumin 4.0 (3.5-5.0) g/dL Lipase 15 (8-78) U/L Independent Interpretation I performed an independent interpretation of an: EKG and CT Scan Interpretation: Normal sinus rhythm heart rate 77 beats per minute normal interval normal axis no acute ST T wave change Radiology Impression Discussion of test interpretation with radiology: I have reviewed the radiologist's reading. Discharge Plan Discharge Clinical Impression: Hypotension due to medication, Syncope Patient Disposition: Home, Self-Care Instructions: Syncope (ED), Hypotension (ED) Additional Instructions: Be cautious when you take clonidine for hypertension at it will drop your blood pressure Your CT scan of the head and C-spine negative for acute Follow-up with your supervising film or videotape editor/PCP for blood pressure management Prescriptions: No Action acetaminophen 325 mg Tablet 650 mg PO Q6H PRN (Reason: Pain, Mild (Pain Scale 1-3)) 30 Days Qty: 240 0RF levothyroxine 50 mcg capsule 50 mcg PO DAILY escitalopram oxalate 20 mg tablet 20 mg PO BEDTIME pramipexole 0.25 mg tablet 0.25 mg PO BEDTIME pantoprazole 40 mg tablet,delayed release (DR/EC) 40 mg PO BEDTIME [id number]-bkhkbeerndlfg-edjr 50-300-40 mg capsule 1 cap PO Q8H PRN (Reason: Headache) diazepam 2 mg tablet 2 mg PO BEDTIME PRN (Reason: Anxiety) lisinopril 40 mg tablet 40 mg PO BEDTIME nifedipine 30 mg tablet extended release 30 mg PO BEDTIME potassium chloride 20 mEq tablet extended release 20 meq PO DAILY cholecalciferol (vitamin D3) 50 mcg (2,000 unit) capsule 50 mcg PO DAILY diclofenac sodium [Voltaren Arthritis Pain] 1 % gel 2 g topical QID Rx Instructions: apply to single elbow, wrist or hand; for hand includes palm/fingers/back of hand diclofenac sodium 75 mg tablet,delayed release (DR/EC) 75 mg PO BID PRN ascorbic acid (vitamin C) 1,000 mg capsule 1 g PO DAILY cyanocobalamin (vitamin B-12) 1,000 mcg capsule 1,000 mcg PO DAILY multivitamin Tablet 1 tab PO DAILY Stand Alone Forms: Work/School Release Interventions: ED Discharge Assessment Last Done: 08/10/23 00:50 Discharge Date/Time: 08/10/23 00:52
--- NOTE | 2023-08-09 19:54 | ECG_ITS ---
Test Reason : FALL Blood Pressure : / mmHG Vent. Rate : 077 BPM Atrial Rate : 077 BPM P-R Int : 140 ms QRS Dur : 100 ms QT Int : 408 ms P-R-T Axes : 025 019 036 degrees QTc Int : 461 ms Normal sinus rhythm Normal ECG No previous ECGs available Referred By: Anna Liz Electronically Signed By:JUAN ALCOCER
[2023-08-09 20:19] LABS: MANUAL DIFF FLAG NO
[2023-08-09 20:27] LABS: Prothrombin Time 11.6 SEC (11.1-13.3)
[2023-08-09 20:32] LABS: Basophils Percent Auto 0.3 % (0-2); Eosinophils Absolute Auto 0.1 X10*3/uL (0.0-0.4); Hemoglobin 12.9 g/dl (14.0-18.0); Imm Gran Abs Auto 0.03 X10*3/uL (0.00-0.03); Imm Gran Pct Auto 0.4 % (0.0-0.4); Lymphocytes Absolute Auto 1.2 X10*3/uL (1.2-4.9); Lymphocytes Percent Auto 16.8 % (20-40); Mean Corpuscular HGB Conc 33.1 g/dl (31.0-36.0); Mean Corpuscular Hemoglobin 29.8 pg (27.0-33.0); Mean Corpuscular Volume 90.1 fL (80.0-98.0); Mean Platelet Volume 9.9 fL (9.4-12.4); Monocytes Absolute Auto 0.6 X10*3/uL (0.1-1.2); Monocytes Percent Auto 7.8 % (2-11); Neutrophils Absolute Auto 5.4 x10*3/uL (2.0-8.3); Neutrophils Percent Auto 73.7 % (45-73); Platelet Count 191 X10*3/uL (160-400); Red Blood Count 4.33 X10*6/uL (4.60-5.80); Red Cell Distribution Width 13.3 % (11.0-16.0); White Blood Count 7.3 X10*3/uL (4.8-10.8)
[2023-08-09 20:36] LABS: Alanine Aminotransferase 26 U/L (0-40); Alkaline Phosphatase 93 U/L (39-117); Anion Gap 10 (12-20); Aspartate Amino Transferase 21 U/L (5-37); Bilirubin Total 0.5 mg/dL (0.0-1.0); Blood Urea Nitrogen 12 mg/dL (9-16); Calcium 8.9 mg/dL (8.4-10.2); Carbon Dioxide 28 mmol/L (22-29); Chloride 108 mmol/L (96-108); Creatinine Clr Calc Pharmacy 146.3; Estimated Glomerular Filt Rate > 60; Glucose Random 118 mg/dL (60-115); Lipase 15 U/L (8-78); Potassium 3.7 mmol/L (3.3-5.1); Sodium 142 mmol/L (135-145); Total Protein 6.6 g/dL (6.5-8.0)
[2023-08-09 20:45] LABS: Troponin-I High Sensitivity < 2.7 ng/L (<3.5-35.0)
[2023-08-10 00:28] VITALS: BP 174/81; PULSE 76; RESP 18; TEMP 37.1; O2SAT 98
== END 2023-08-10 00:52 | disposition home or self-care (01) ==
PROVIDERS: Physician Assistant Medical; Emergency Provider Internal Medicine; PCP Internal Medicine
DX: S09.90XA Unspecified injury of head, initial encounter (principal); R55 Syncope and collapse; I95.2 Hypotension due to drugs; R51.9 Headache, unspecified; M54.2 Cervicalgia; W01.10XA Fall on same level from slipping, tripping and stumbling with subsequent striking against unspecified object, initial encounter; Y93.9 Activity, unspecified; Y92.002 Bathroom of unspecified non-institutional (private) residence as the place of occurrence of the external cause; Y99.8 Other external cause status; Z79.899 Other long term (current) drug therapy
CPT/HCPCS: 36415; 70450; 72125; 80053; 82550; 83690; 83735; 84484; 85025; 85610; 93005; 99284

== ENCOUNTER → 2023-08-09 19:54 | Outpatient (BNV) | payer OTHER, SELFPAY | PROVIDERS: Emergency Provider Internal Medicine; PCP Internal Medicine; Visit Provider Internal Medicine | DX: I10 Essential (primary) hypertension (principal); R55 Syncope and collapse | CPT/HCPCS: 93010 ==

== ENCOUNTER 2023-11-06 08:27 | Outpatient (REF) | payer OTHER, SELFPAY ==
--- NOTE | ~2023-11-06 | XR_ITS ---
EXAMINATION: XR KNEE, RIGHT CLINICAL INFORMATION: Pain in right knee. COMPARISON: None available. TECHNIQUE: AP and lateral views of the right knee. FINDINGS: Small joint effusion. Moderate narrowing of the medial compartment. Small tricompartmental osteophytes. XR/XR knee RT 2V IMPRESSION: Moderate degenerative changes. Small joint effusion.
== END 2023-11-06 08:28 | disposition home or self-care (01) ==
LOC: HO.XRAY 08:27
PROVIDERS: PCP Internal Medicine; Visit Provider Internal Medicine
DX: M25.561 Pain in right knee (principal)
CPT/HCPCS: 73560

== ENCOUNTER 2024-03-03 15:09 | Outpatient (AMB) | payer OTHER, SELFPAY ==
--- NOTE | 2024-03-03 12:47 | A.OFFPC_ITS ---
Vital Signs 03/03/24 15:30 Height 5 ft 11 in Weight 308 lb BMI 43.0 BP 136/88 Blood Pressure Location Lt brachial Position Sitting Respiration 14 Pulse 77 Pulse Source Pulse Oximeter Pulse Oximetry (%) 94 Oxygen Delivery Method Room Air Intake Visit Reasons: Transfer from [facility] Allergies piroxicam [PIROXICAM] Allergy (Intermediate, Verified 03/03/24 15:32) NOSEBLEEDS Tobacco use date assessed: 03/03/24 Dental Screening Did you have a dental visit in the last 12 months?: Yes Did you have a dental problem in the last 6 months where you did not have access to dental care?: No Was dental information given to patient?: Patient has dentist HPI HPI Comments History of Present Illness Details Patient is a 57-year-old male with a past medical history of oa, recurrent sinusitis, hypertension, hypothyroid, YO on CPAP, depression presenting for follow-up Patient has chronic right leg swelling. This happened following a right total hip replacement persisted. He saw vascular her room and recommended the use of a pneumatic compression device. Had a CT performed which showed severe soft tis dorota edema of the calf ankle and foot. No CT evidence of necrotizing infection or collection. No deep soft tissue edema. Neuro: Frequent migraines, sinus infections. CT 2020. History of surgery for deviated septum in 2012. He has YO on CPAP. Uses Fiorinal with codeine p.r.n. for migraines. MSK: Neck pain, spasm. Right foot pain. Status post right total hip replacement 09/2021. Left total hip replacement 10/2017. Tylenol 3 p.r.n. Endocrine: Hypothyroid on levothyroxine 50 mcg daily. Low testosterone Depression: On Lexapro 20 mg daily. On diazepam 2 mg as needed. Nocturia: He was referred to Urology previously Colonoscopy 03/2020 at [facility] ROS CONSTITUTIONAL: Denies weight loss, fever and chills. HEENT: Denies changes in vision and hearing. RESPIRATORY: Denies SOB and cough. CV: Denies palpitations and CP GI: Denies abdominal pain, nausea, vomiting and diarrhea. : Denies dysuria and urinary frequency. MSK: Denies new myalgia and joint pain. SKIN: Denies rash and pruritus. NEUROLOGICAL: Denies headache PSYCHIATRIC: Denies recent changes in mood. PHYSICAL EXAM: GENERAL: Alert and oriented x 3. NAD EYES: EOMI. Anicteric. HENT: Moist mucous membranes. No scleral icterus. No cervical lymphadenopathy. LUNGS: Clear to auscultation bilaterally. CARDIOVASCULAR: Regular rate and rhythm. No murmur. No JVD. ABDOMEN: Soft, non-tender +bs EXTREMITIES: No edema. Non-tender. SKIN: No rashes or lesions. Warm. NEUROLOGIC: No focal neurological deficits. CN II-XII grossly intact PSYCHIATRIC: Cooperative. Appropriate mood and affect [facility] Medical History (Updated 03/12/24 @ 11:41 by Chantale Trinidad MD) Low vitamin D level IFG (impaired fasting glucose) Primary osteoarthritis of right hip Scoliosis Degenerative disc disease Osteoarthritis Overactive bladder Sleep apnea Migraines GERD (gastroesophageal reflux disease) Hypothyroid Depression Low testosterone in male HTN (hypertension) Surgical History History of nasal surgery Hx of total hip arthroplasty Hx of hernia repair Hx of colonoscopy Family History (Updated 03/03/24 @ 12:51 by Jennifer Ahmadi CMA) Mother Aneurysm Arthritis Cancer Father Cancer Social History (Updated 03/03/24 @ 15:35 by Jennifer Ahmadi CMA) Household Members: Spouse Housing: House Are you a primary manager medicare to a significant other at home: No Do you presently have visiting nurse or other home services: No Alcohol intake: never Comment: aware of trip hazard Patient Tobacco Use Status: Never used Tobacco e-Cigarette/Vaping Use: Never Used Second Hand Smoke Exposure: Yes () service: Yes Current occupational status: employed Cognitive needs: No Hearing needs: No Vision needs: No Physical exam (Primary Care) Vital Signs: Last Vital Signs Pulse 77 03/03/24 15:30 Resp 14 03/03/24 15:30 BP 136/88 03/03/24 15:30 Pulse Ox 94 03/03/24 15:30 Oxygen Delivery Method Room Air 03/03/24 15:30 BMI result Body Mass Index 43.0 Tobacco/Smoking Status: Tobacco use Status Tobacco use date assessed 03/03/24 03/03/24 15:34 Patient Tobacco Use Status Never used Tobacco 03/03/24 15:35 e-Cigarette/Vaping Use Never Used 03/03/24 15:35 Assessment and Plan Assessment & Plan (1) Hypothyroid: Code(s): E03.9 - Hypothyroidism, unspecified Qualifiers: Hypothyroidism type: unspecified Qualified Code(s): E03.9 - Hypothyroidism, unspecified Plan: Biochemically euthyroid on current dose of levothyroxine (2) Osteoarthritis, multiple sites: Code(s): M15.9 - Polyosteoarthritis, unspecified Qualifiers: Osteoarthritis type: primary Qualified Code(s): M15.0 - Primary generalized (osteo)arthritis Plan: Continue current medications. continue f/up ortho (3) Depression: Code(s): F32.9 - Major depressive disorder, single episode, unspecified Qualifiers: Active/Remission status: in partial remission Depression Type: major depressive disorder Major depression recurrence: recurrent Qualified Code(s): F33.41 - Major depressive disorder, recurrent, in partial remission Plan: stable on current medications Orders: Orders Complete Blood Count Auto Diff 03/03/24 I89.0 - Lymphedema, not elsewhere classified, E03.9 - Hypothyroidism, unspecified, R73.01 - Impaired fasting gluc ose, R79.89 - Other specified abnormal findings of blood chemistry Comprehensive Met. Panel 03/03/24 I89.0 - Lymphedema, not elsewhere classified, E03.9 - Hypothyroidism, unspecified, R73.01 - Impaired fasting glucose, R79.89 - Other specified abnormal findings of blood chemistry Hemoglobin A1c 03/03/24 I89.0 - Lymphedema, not elsewhere classified, E03.9 - Hypothyroidism, unspecified, R73.01 - Impaired fasting glucose, R79.89 - Other specified abnormal findings of blood chemistry TSH reflex Free T4 03/03/24 I89.0 - Lymphedema, not elsewhere classified, E03.9 - Hypothyroidism, unspecified, R73.01 - Impaired fasting glucose, R79.89 - Other specified abnormal findings of blood chemistry Lipid Panel 03/03/24 I89.0 - Lymphedema, not elsewhere classified, E03.9 - Hypothyroidism, unspecified, R73.01 - Impaired fasting glucose, R79.89 - Other specified abnormal findings of blood chemistry Medications: New pramipexole 0.5 mg PO BEDTIME 90 tabs 3RF Coding Level of Care Code Est Pt Level 5 (90515) Diagnoses Hypothyroidism, unspecified type E03.9 Hypothyroidism type: unspecified Primary osteoarthritis involving multiple joints M15.0 Osteoarthritis type: primary Recurrent major depressive disorder, in partial remission F33.41 Active/Remission status: in partial remission Depression Type: major depressive disorder Major depression recurrence: recurrent Time Spent (min) 44
[2024-03-03 15:30] VITALS: BP 136/88; PULSE 77; RESP 14; O2SAT 94; BMI 43.0
== END 2024-03-03 16:27 | disposition home or self-care (01) ==
PROVIDERS: PCP Internal Medicine; Visit Provider Internal Medicine
DX: E03.9 Hypothyroidism, unspecified (principal); M15.0 Primary generalized (osteo)arthritis; F33.41 Major depressive disorder, recurrent, in partial remission

== ENCOUNTER → 2024-03-03 15:09 | Outpatient (BNVA) | payer OTHER, SELFPAY | PROVIDERS: PCP Internal Medicine; Visit Provider Internal Medicine ==

== ENCOUNTER 2024-03-17 07:46 | Outpatient (REF) | payer OTHER, SELFPAY ==
[2024-03-17 08:05] LABS: MANUAL DIFF FLAG NO
[2024-03-17 08:40] LABS: Basophils Absolute Auto 0.1 X10*3/uL (0.0-0.2); Basophils Percent Auto 0.7 % (0-2); Eosinophils Absolute Auto 0.1 X10*3/uL (0.0-0.4); Eosinophils Percent Auto 1.2 % (0-4); Hematocrit 38.5 % (42.0-52.0); Hemoglobin 12.5 g/dl (14.0-18.0); Imm Gran Abs Auto 0.02 X10*3/uL (0.00-0.03); Imm Gran Pct Auto 0.3 % (0.0-0.4); Lymphocytes Absolute Auto 1.8 X10*3/uL (1.2-4.9); Lymphocytes Percent Auto 26.8 % (20-40); Mean Corpuscular HGB Conc 32.5 g/dl (31.0-36.0); Mean Corpuscular Hemoglobin 29.8 pg (27.0-33.0); Mean Corpuscular Volume 91.7 fL (80.0-98.0); Mean Platelet Volume 10.6 fL (9.4-12.4); Monocytes Absolute Auto 0.6 X10*3/uL (0.1-1.2); Monocytes Percent Auto 9.1 % (2-11); Neutrophils Absolute Auto 4.2 x10*3/uL (2.0-8.3); Neutrophils Percent Auto 61.9 % (45-73); Platelet Count 196 X10*3/uL (160-400); Red Cell Distribution Width 12.9 % (11.0-16.0); White Blood Count 6.8 X10*3/uL (4.8-10.8)
[2024-03-17 09:20] LABS: Alanine Aminotransferase 30 U/L (0-40); Albumin Level 4.3 g/dL (3.5-5.0); Alkaline Phosphatase 98 U/L (39-117); Anion Gap 13 (12-20); Aspartate Amino Transferase 24 U/L (5-37); Bilirubin Total 0.7 mg/dL (0.0-1.0); Blood Urea Nitrogen 17 mg/dL (9-16); Calcium 8.8 mg/dL (8.4-10.2); Carbon Dioxide 25 mmol/L (22-29); Chloride 108 mmol/L (96-108); Cholesterol 137 mg/dL (<200); Estimated Glomerular Filt Rate > 60; Glucose Random 120 mg/dL (60-115); HDL Cholesterol 45 mg/dL (>40); LDL Cholesterol Calculated 70 mg/dL (<100); Potassium 3.6 mmol/L (3.3-5.1); Sodium 142 mmol/L (135-145); Total Protein 6.8 g/dL (6.5-8.0); Triglycerides 114 mg/dL (<150)
[2024-03-17 09:24] LABS: TSH reflex Free T4 3.05 uIU/mL (0.32-4.0)
[2024-03-17 10:40] LABS: Estimated Average Glucose 126 mg/dL; Hemoglobin A1C 129.5889 umol/L
== END 2024-03-17 07:47 | disposition home or self-care (01) ==
LOC: HO.LAB 07:46
PROVIDERS: PCP Internal Medicine; Visit Provider Internal Medicine
DX: I89.0 Lymphedema, not elsewhere classified (principal); E03.9 Hypothyroidism, unspecified; R73.01 Impaired fasting glucose; R79.89 Other specified abnormal findings of blood chemistry
CPT/HCPCS: 36415; 80053; 80061; 83036; 84443; 85025

== ENCOUNTER 2024-04-07 08:25 | Outpatient (REF) | payer OTHER, SELFPAY ==
--- NOTE | ~2024-04-07 | XR_ITS ---
EXAMINATION: XR FOOT LEFT 3 VIEWS CLINICAL INFORMATION: Pain in left foot M79.672. COMPARISON: None available. TECHNIQUE: AP, lateral, and oblique views of the left foot. FINDINGS: Bones of the midfoot are well aligned. No tarsal, metatarsal or phalangeal fracture. Mild degenerative changes of scattered IP joints. No localized soft tissue swelling. No gross ankle joint effusion. Small posterior and plantar calcaneal enthesophytes. XR/XR foot LT min 3V IMPRESSION: Mild degenerative changes of the left foot. No fracture. Electronically signed by: Samuel Calderón MD 05/24/2024 09:36 AM EST
== END 2024-04-07 08:26 | disposition home or self-care (01) ==
LOC: HO.XRAY 08:25
PROVIDERS: PCP Internal Medicine; Visit Provider Internal Medicine
DX: M79.672 Pain in left foot (principal)
CPT/HCPCS: 73630

== ENCOUNTER 2024-04-11 13:44 | Outpatient (AMB) | payer OTHER, SELFPAY ==
--- NOTE | 2024-04-11 13:51 | A.OFFPC_ITS ---
Vital Signs 04/11/24 13:54 Height 5 ft 11 in Weight 312 lb 6 oz BMI 43.6 BP 134/82 Blood Pressure Location Lt brachial Position Sitting Pulse 99 Pulse Source Pulse Oximeter Temp 97.7 F Temp Source Oral Pulse Oximetry (%) 98 Oxygen Delivery Method Room Air Intake Visit Reasons: Med Review Intake Note: Medication follow up. Sinus infection symptoms for one week, congestion, headache, pressure Allergies piroxicam [PIROXICAM] Allergy (Intermediate, Verified 03/03/24 15:32) NOSEBLEEDS Tobacco use date assessed: 03/03/24 HPI HPI Comments History of Present Illness Details Patient is a 57-year-old male with a past medical history of oa, recurrent sinusitis, hypertension, hypothyroid, YO on CPAP, depression presenting for follow-up Patient reports a nodularity, swelling in the neck a few cms below the jawline/above the thyroid. It is slightly tender. Denies recent dental work. Chronic sinus issues. No night sweats, weight loss Patient has chronic right leg swelling. This happened following a right total hip replacement persisted. He saw vascular her room and recommended the use of a pneumatic compression device. Had a CT performed which showed severe soft tissue edema of the calf ankle and foot. No CT evidence of necrotizing infection or collection. No deep soft tissue edema. Neuro: Frequent migraines, sinus infections. CT 2020. History of surgery for deviated septum in 2012. He has YO on CPAP. Uses Fiorinal with codeine p.r.n. for migraines. MSK: Neck pain, spasm. Right foot pain. Status post right total hip replacement 09/2021. Left total hip replacement 10/2017. Mrs. Anaya 3 p.r.n. Endocrine: Hypothyroid on levothyroxine 50 mcg daily. Low testosterone Depression: On Lexapro 20 mg daily. On diazepam 2 mg as needed. Patient reports suboptimal control. Still has flashbacks of childhood trauma, PTSD. Nocturia: He was referred to Urology previously, would like new referral Colonoscopy 03/2020 at [facility] ROS see HPI PHYSICAL EXAM: GENERAL: Alert and oriented x 3. NAD EYES: EOMI. Anicteric. HENT: Moist mucous membranes. Boggy nasal mucosa. Palpable enlarged cervical lymph nodes. LUNGS: Clear to auscultation bilaterally. CARDIOVASCULAR: Regular rate and rhythm. No murmur. No JVD. ABDOMEN: Soft, non-tender +bs, umbilical hernia EXTREMITIES: No edema. Non-tender. SKIN: No rashes or lesions. Warm. NEUROLOGIC: No focal neurological deficits. CN II-XII grossly intact PSYCHIATRIC: Cooperative. Appropriate mood and affect [facility] Medical History (Updated 04/11/24 @ 15:29 by Chantale Trinidad MD) Low vitamin D level IFG (impaired fasting glucose) Primary osteoarthritis of right hip Scoliosis Degenerative disc disease Osteoarthritis Overactive bladder Sleep apnea Migraines GERD (gastroesophageal reflux disease) Hypothyroid Depression Low testosterone in male HTN (hypertension) Surgical History History of nasal surgery Hx of total hip arthroplasty Hx of hernia repair Hx of colonoscopy Family History (Updated 03/03/24 @ 12:51 by Jennifer Ahmadi CMA) Mother Aneurysm Arthritis Cancer Father Cancer Social History (Updated 03/03/24 @ 15:35 by Jennifer Ahmadi CMA) Household Members: Spouse Housing: House Are you a primary career and technology education teacher to a significant other at home: No Do you presently have visiting nurse or other home services: No Alcohol intake: never Comment: aware of trip hazard Patient Tobacco Use Status: Never used Tobacco e-Cigarette/Vaping Use: Never Used Second Hand Smoke Exposure: Yes () service: Yes Current occupational status: employed Cognitive needs: No Hearing needs: No Vision needs: No Questionnaire Thrive Questionnaire Date Thrive assessed: 03/03/24 I am a: Patient What is your living situation today?: I have a steady place to live Within the past 12 months, did the food you bought not last and you didn't have the money to get more?: Never true Within the past 12 months, did you worry whether your food would run out before you got money to buy more?: Never true Do you have trouble paying for medicines?: No Do you have trouble getting transportation to medical appointments?: No Do you have trouble paying your heating and electricity bill?: No Do you have trouble taking care of your child, family member or friend?: No Do you have trouble with day-to-day activities such as bathing, preparing meals, shopping, managing finances, etc.?: No Are you currently unemployed and looking for a job?: No Are you interested in more education?: No Please select the resources that you would like help with: None Currently or been in a relationship where the following occur: No concerns reported THRIVE Score: 0 Physical exam (Primary Care) Vital Signs: Last Vital Signs Temp 97.7 F 04/11/24 13:54 Pulse 99 04/11/24 13:54 BP 134/82 04/11/24 13:54 Pulse Ox 98 04/11/24 13:54 Oxygen Delivery Method Room Air 04/11/24 13:54 BMI result Body Mass Index 43.6 Tobacco/Smoking Status: Tobacco use Status Tobacco use date assessed 03/03/24 04/11/24 13:58 Patient Tobacco Use Status Never used Tobacco 04/11/24 13:58 e-Cigarette/Vaping Use Never Used 04/11/24 13:58 Thrive Assessment: Date of Thrive Assessment Date Thrive assessed 03/03/24 04/11/24 13:58 Currently or been in a relationship where the following occur: No concerns reported Coding Level of Care Code Est Pt Level 4 (67713) Complex EM visit Add On G2211 Diagnoses Cervical lymphadenopathy R59.0 Low testosterone R79.89 PTSD (post-traumatic stress disorder) F43.10 Assessment & Plan Assessment & Plan (1) Cervical lymphadenopathy: Code(s): R59.0 - Localized enlarged lymph nodes Category: Medical Plan: u/s ordered (2) Low testosterone: Code(s): R79.89 - Other specified abnormal findings of blood chemistry Category: Medical Plan: referred to urology (3) PTSD (post-traumatic stress disorder): Code(s): F43.10 - Post-traumatic stress disorder, unspecified Category: Medical Plan: referral to psychiatry-consider TMS, ketamine therapy Has historicall done much better on brand name lexapro Orders: Orders US soft tiss head and/or neck 04/11/24 R59.0 - Localized enlarged lymph nodes Referrals Psychiatry Referral F43.10 - Post-traumatic stress disorder, unspecified Urology Referral R79.89 - Other specified abnormal findings of blood chemistry Medications: New diazepam 2 mg PO BEDTIME PRN 30 tabs 0RF Anxiety Wegovy (semaglutide (weight loss)) administer weeks 1 through 4 of therapy 0.25 mg (0.5 mL) subcut QWEEK 2 mL 0RF NS I10 - Essential (primary) hypertension, R73.01 - Impaired fasting glucose, R79.89 - Other specified abnormal findings of blood chemistry levofloxacin 750 mg PO DAILY 7 tabs 0RF Refilled diazepam 2 mg PO BEDTIME PRN 30 tabs 0RF Anxiety
[2024-04-11 13:54] VITALS: BP 134/82; PULSE 99; TEMP 36.5; O2SAT 98; BMI 43.6
== END 2024-04-11 15:45 | disposition home or self-care (01) ==
LOC: HO.HMCFM 13:45
PROVIDERS: PCP Internal Medicine; Visit Provider Internal Medicine
DX: R59.0 Localized enlarged lymph nodes (principal); R79.89 Other specified abnormal findings of blood chemistry; F43.10 Post-traumatic stress disorder, unspecified

== ENCOUNTER → 2024-04-11 13:44 | Outpatient (BNVA) | payer OTHER, SELFPAY | PROVIDERS: PCP Internal Medicine; Visit Provider Internal Medicine ==

== ENCOUNTER 2024-05-23 14:02 | Outpatient (AMB) | payer OTHER, SELFPAY ==
--- NOTE | 2024-05-23 14:19 | MHC.PC.OV ---
Vital Signs 05/23/24 14:21 Height 5 ft 11 in Weight 317 lb 8 oz BMI 44.3 BP 156/86 H Blood Pressure Location Rt brachial Position Sitting Pulse 98 Pulse Source Pulse Oximeter Pulse Oximetry (%) 98 Oxygen Delivery Method Room Air Intake Visit Reasons: High Blood Pressure Intake Note: Elevated blood pressure Allergies piroxicam [PIROXICAM] Allergy (Intermediate, Verified 05/23/24 14:20) NOSEBLEEDS Tobacco use date assessed: 03/03/24 HPI HPI Comments History of Present Illness Details Patient is a 58-year-old male with a past medical history of oa, recurrent sinusitis, hypertension, hypothyroid, YO on CPAP, depression presenting for follow-up CV: HTN. Numbers at home running 140s-170s/80s-105. Home BP meter ~8 higher systolic and diastolic. Currently on lisinopril 40mg and nifedipine 30mg daily. Patient has chronic right leg swelling. This happened following a right total hip replacement persisted. He saw vascular and recommended the use of a pneumatic compression device. Had a CT performed which showed severe soft tissue edema of the calf ankle and foot. No CT evidence of necrotizing infection or collection. No deep soft tissue edema. Neuro: Frequent migraines, sinus infections. CT 2020. History of surgery for deviated septum in 2012. He has YO on CPAP. Uses Fiorinal with codeine p.r.n. for migraines. MSK: Neck pain, spasm. Right foot pain. Status post right total hip replacement 09/2021. Left total hip replacement 10/2017. Mrs. Anaya 3 p.r.n. Endocrine: Hypothyroid on levothyroxine 50 mcg daily. Low testosterone Depression: On Lexapro 20 mg daily, felt a lot more controlled on brand name. On diazepam 2 mg as needed. Patient reports suboptimal control. Still has flashbacks of childhood trauma, PTSD. Nocturia: Following urology. On flomax Colonoscopy 03/2020 at [facility] ROS see HPI PHYSICAL EXAM: GENERAL: Alert and oriented x 3. NAD EYES: EOMI. Anicteric. HENT: Moist mucous membranes. Boggy nasal mucosa. Palpable enlarged cervical lymph nodes. LUNGS: Clear to auscultation bilaterally. CARDIOVASCULAR: Regular rate and rhythm. No murmur. No JVD. ABDOMEN: Soft, non-tender +bs, umbilical hernia EXTREMITIES: Trace to 1+pitting edema SKIN: No rashes or lesions. Warm. NEUROLOGIC: No focal neurological deficits. CN II-XII grossly intact PSYCHIATRIC: Cooperative. Appropriate mood and affect [facility] Medical History (Updated 05/28/24 @ 11:56 by Chantale Trinidad MD) Low vitamin D level IFG (impaired fasting glucose) Primary osteoarthritis of right hip Scoliosis Degenerative disc disease Osteoarthritis Overactive bladder Sleep apnea Migraines GERD (gastroesophageal reflux disease) Hypothyroid Depression Low testosterone in male HTN (hypertension) Surgical History History of nasal surgery Hx of total hip arthroplasty Hx of hernia repair Hx of colonoscopy Family History (Updated 03/03/24 @ 12:51 by Jennifer Ahmadi CMA) Mother Aneurysm Arthritis Cancer Father Cancer Social History (Updated 03/03/24 @ 15:35 by Jennifer Ahmadi CMA) Household Members: Spouse Housing: House Are you a primary adult care manager to a significant other at home: No Do you presently have visiting nurse or other home services: No Alcohol intake: never Comment: aware of trip hazard Patient Tobacco Use Status: Never used Tobacco e-Cigarette/Vaping Use: Never Used Second Hand Smoke Exposure: Yes () service: Yes Current occupational status: employed Cognitive needs: No Hearing needs: No Vision needs: No Questionnaire Thrive Questionnaire Date Thrive assessed: 03/03/24 I am a: Patient What is your living situation today?: I have a steady place to live Within the past 12 months, did the food you bought not last and you didn't have the money to get more?: Never true Within the past 12 months, did you worry whether your food would run out before you got money to buy more?: Never true Do you have trouble paying for medicines?: No Do you have trouble getting transportation to medical appointments?: No Do you have trouble paying your heating and electricity bill?: No Do you have trouble taking care of your child, family member or friend?: No Do you have trouble with day-to-day activities such as bathing, preparing meals, shopping, managing finances, etc.?: No Are you currently unemployed and looking for a job?: No Are you interested in more education?: No Please select the resources that you would like help with: None Currently or been in a relationship where the following occur: No concerns reported THRIVE Score: 0 Physical exam (Primary Care) Vital Signs: Last Vital Signs Pulse 98 05/23/24 14:21 BP 156/86 H 05/23/24 14:21 Pulse Ox 98 05/23/24 14:21 Oxygen Delivery Method Room Air 05/23/24 14:21 BMI result Body Mass Index 44.3 Tobacco/Smoking Status: Tobacco use Status Tobacco use date assessed 03/03/24 05/23/24 14:24 Patient Tobacco Use Status Never used Tobacco 05/23/24 14:24 e-Cigarette/Vaping Use Never Used 05/23/24 14:24 Thrive Assessment: Date of Thrive Assessment Date Thrive assessed 03/03/24 05/23/24 14:24 Currently or been in a relationship where the following occur: No concerns reported Coding Level of Care Code Est Pt Level 4 (80254) Complex EM visit Add On G2211 Diagnoses Primary hypertension I10 Hypertension type: primary hypertension Primary osteoarthritis involving multiple joints M15.0 Osteoarthritis type: primary Assessment & Plan Assessment & Plan (1) HTN (hypertension): Code(s): I10 - Essential (primary) hypertension Category: Medical Qualifiers: Hypertension type: primary hypertension Qualified Code(s): I10 - Essential (primary) hypertension Plan: Suboptimal control. Some water retention. Start chlorthalidone 25mg daily-he will start with 1/2 tab daily. (2) Osteoarthritis, multiple sites: Code(s): M15.9 - Polyosteoarthritis, unspecified Category: Medical Qualifiers: Osteoarthritis type: primary Qualified Code(s): M15.0 - Primary generalized (osteo)arthritis Plan: stable on current regimen Medications: New chlorthalidone 25 mg PO DAILY 90 tabs 3RF
[2024-05-23 14:21] VITALS: BP 156/86; PULSE 98; O2SAT 98; BMI 44.3
--- OUTSIDE RECORDS SUMMARY | 2024-05-24 21:56 | XMS_ITS | Continuity of Care Document ---
Author Name [facility] Organization [facility] Care Team Providers Care Dispatcher [place] Name Role Phone [facility] Unavailable Unavailable Social History Combined list of available smoking, tobacco, and other social history from [facility] Defense and [facility] facilities. Social History Type Response Date Comment Sourc e This section is an empty social history section. [facility]
== END 2024-05-23 15:12 | disposition home or self-care (01) ==
PROVIDERS: PCP Internal Medicine; Visit Provider Internal Medicine
DX: I10 Essential (primary) hypertension (principal); M15.0 Primary generalized (osteo)arthritis

== ENCOUNTER → 2024-05-23 14:02 | Outpatient (BNVA) | payer OTHER, SELFPAY | PROVIDERS: PCP Internal Medicine; Visit Provider Internal Medicine ==

== ENCOUNTER 2024-08-11 14:52 | Outpatient (AMB) | payer OTHER, SELFPAY ==
--- NOTE | 2024-08-11 15:23 | MHC.PC.OV ---
Vital Signs 08/11/24 15:27 Height 5 ft 11 in Weight 218 lb BMI 30.4 BP 126/74 Blood Pressure Location Rt brachial Position Sitting Respiration 18 Pulse 102 H Pulse Source Pulse Oximeter Pulse Oximetry (%) 97 Oxygen Delivery Method Room Air Intake Visit Reasons: bp follow up Intake Note: Blood pressure follow up Metal Burnisher Required: No Allergies piroxicam [PIROXICAM] Allergy (Intermediate, Verified 08/11/24 15:24) NOSEBLEEDS Tobacco use date assessed: 03/03/24 HPI HPI Comments History of Present Illness Details Patient is a 58-year-old male with a past medical history of oa, recurrent sinusitis, hypertension, hypothyroid, YO on CPAP, depression presenting for follow-up CV: HTN. On lisinopril 40mg, nifedipine 30mg daily and added chlorathlidone 25mg daily. This has normalized blood pressure and helped somewhat with LE swelling. Denies chest pain, exertinoal dyspnea Patient has chronic right leg swelling. This happened following a right total hip replacement persisted. He saw vascular and recommended the use of a pneumatic compression device. Had a CT performed which showed severe soft tissue edema of the calf ankle and foot. No CT evidence of necrotizing infection or collection. No deep soft tissue edema. Neuro: Frequent migraines, sinus infections. CT 2020. History of surgery for deviated septum in 2012. He has YO on CPAP. Uses Fiorinal with codeine p.r.n. for migraines. MSK: Neck pain, spasm. Right foot pain. Status post right total hip replacement 09/2021. Left total hip replacement 10/2017. Mrs. Anaya 3 p.r.n. Endocrine: Hypothyroid on levothyroxine 50 mcg daily. Low testosterone Depression: Tapered escitalopram. Did well on brand name Lexapro 20 mg daily, insurance wont cover and escitalopram was increasing moodiness. Having a lot of anger-builds up inside. Not violent. Effects mood. On diazepam 2 mg as needed. Patient reports suboptimal control. Still has flashbacks of childhood trauma, PTSD. Has tried and failed/intolerant citalopram, prozac, cymbalta in the past. Not currently in therapy but will consider returning to therapy. Would consider TMS. Nocturia: Following urology. On flomax Colonoscopy 03/2020 at [facility] ROS see HPI PHYSICAL EXAM: GENERAL: Alert and oriented x 3. NAD EYES: EOMI. Anicteric. HENT: Moist mucous membranes. Boggy nasal mucosa. Palpable enlarged cervical lymph nodes. LUNGS: Clear to auscultation bilaterally. CARDIOVASCULAR: Regular rate and rhythm. No murmur. No JVD. ABDOMEN: Soft, non-tender +bs, umbilical hernia EXTREMITIES: Trace to 1+pitting edema SKIN: No rashes or lesions. Warm. NEUROLOGIC: No focal neurological deficits. CN II-XII grossly intact PSYCHIATRIC: Cooperative. Appropriate mood and affect ON LICENSE OF [facility] Medical History Low vitamin D level IFG (impaired fasting glucose) Primary osteoarthritis of right hip Scoliosis Degenerative disc disease Osteoarthritis Overactive bladder Sleep apnea Migraines GERD (gastroesophageal reflux disease) Hypothyroid Depression Low testosterone in male HTN (hypertension) Surgical History History of nasal surgery Hx of total hip arthroplasty Hx of hernia repair Hx of colonoscopy Family History Mother Aneurysm Arthritis Cancer Father Cancer Social History Household Members: Spouse Housing: House Are you a primary manager medicare marketing to a significant other at home: No Do you presently have visiting nurse or other home services: No Alcohol intake: never Comment: aware of trip hazard Patient Tobacco Use Status: Never used Tobacco e-Cigarette/Vaping Use: Never Used Second Hand Smoke Exposure: Yes () service: Yes Current occupational status: employed Cognitive needs: No Hearing needs: No Vision needs: No Questionnaire PHQ-9 Over the last 2 weeks, how often have you been bothered by any of the following problems? 9. Thoughts that you would be better off or of hurting yourself in some way: not at all Source: Developed by Drs. Boris Mccormack, Mary Geiger, Dre White and colleagues, with an educational krystal from [employer]. Thrive Questionnaire Date Thrive assessed: 08/11/24 I am a: Patient What is your living situation today?: I have a steady place to live Within the past 12 months, did the food you bought not last and you didn't have the money to get more?: Never true Within the past 12 months, did you worry whether your food would run out before you got money to buy more?: Never true Do you have trouble paying for medicines?: No Do you have trouble getting transportation to medical appointments?: No Do you have trouble paying your heating and electricity bill?: No Do you have trouble taking care of your child, family member or friend?: No Do you have trouble with day-to-day activities such as bathing, preparing meals, shopping, managing finances, etc.?: No Are you currently unemployed and looking for a job?: No Are you interested in more education?: No Please select the resources that you would like help with: None Currently or been in a relationship where the following occur: No concerns reported THRIVE Score: 0 AUDIT C Alcohol Use Questionnaire (AUDIT-C) 1. How often do you have a drink containing alcohol?: Never Total Score: 0 HEMALATHA-7 AMB Questionnaire HEMALATHA-7 Date HEMALATHA - 7 assessed: 08/11/24 Feeling nervous, anxious, or on edge: 1 = Several days Not being able to stop or control worryin = Not at all Worrying too much about different things: 0 = Not at all Trouble relaxin = Not at all Being so restless that it is hard to sit still: 0 = Not at all Becoming easily annoyed or irritable: 1 = Several days Feeling afraid as if something awful might happen: 0 = Not at all Total HEMALATHA-7 score (0-4 normal; 5-9 mild; 10-14 moderate; 15-21 severe): 2 Source: Developed by Drs. Boris Mccormack, Mary Geiger, Dre White and colleagues, with an educational krystal from [employer]. HEMALATHA-7 Assessment Billing HEMALATHA-7 Assessment Tool: HEMALATHA-7 Assessment 79067 Physical exam (Primary Care) Vital Signs: Last Vital Signs Pulse 102 H 08/11/24 15:27 Resp 18 08/11/24 15:27 BP 126/74 08/11/24 15:27 Pulse Ox 97 08/11/24 15:27 Oxygen Delivery Method Room Air 08/11/24 15:27 BMI result Body Mass Index 30.4 Tobacco/Smoking Status: Tobacco use Status Tobacco use date assessed 03/03/24 08/11/24 15:29 Patient Tobacco Use Status Never used Tobacco 08/11/24 15:29 e-Cigarette/Vaping Use Never Used 08/11/24 15:29 Thrive Assessment: Date of Thrive Assessment Date Thrive assessed 08/11/24 08/11/24 15:29 Currently or been in a relationship where the following occur: No concerns reported Coding Level of Care Code Est Pt Level 4 (47777) Diagnoses Primary hypertension I10 Hypertension type: primary hypertension Recurrent major depressive disorder, in partial remission F33.41 Depression Type: major depressive disorder Major depression recurrence: recurrent Active/Remission status: in partial remission Additional Codes HEMALATHA-7 Assessment Billing - HEMALATHA-7 Assessment Tool: HEMALATHA-7 Assessment 99189 ([id number]) Assessment & Plan Assessment & Plan (1) HTN (hypertension): Code(s): I10 - Essential (primary) hypertension Category: Medical Qualifiers: Hypertension type: primary hypertension Qualified Code(s): I10 - Essential (primary) hypertension Plan: Improved control with addition on diuretic. Will add clonidine for psych/htn. (2) Depression: Code(s): F32.9 - Major depressive disorder, single episode, unspecified Category: Medical Qualifiers: Depression Type: major depressive disorder Major depression recurrence: recurrent Active/Remission status: in partial remission Qualified Code(s): F33.41 - Major depressive disorder, recurrent, in partial remission Plan: Referral for counseling. Add clonidine. Start trial of sertraline Orders: Referrals Psychology Referral F33.41 - Major depressive disorder, recurrent, in partial remission, R45.4 - Irritability and anger Medications: New sertraline Take 1/2 tab oral once daily for one week then increase to 1 tab oral daily 25 mg PO DAILY 90 tabs 3RF clonidine HCl 0.1 mg PO BID 180 tabs 3RF
[2024-08-11 15:27] VITALS: BP 126/74; PULSE 102; RESP 18; O2SAT 97; BMI 30.4
--- OUTSIDE RECORDS SUMMARY | 2024-08-11 17:04 | XMS_ITS | Encounter Summary ---
Author Organization [facility] Address [address] [place] [address] Care Team Providers Care Fruit Or Nut Farmworker Name Role Phone Chantale Walters MD Primary Care Provider Shelia avalos [facility], Pcp Primary Care Provider Brandi camejo Encounter Details Date Type Department Care Team Description 02/25/2018 Hospital Medical Records [address] [place] [address] Jonh Lou MD Social History Tobacco Use Types Packs/Day Years Used Date Smoking Tobacco: Never Smokeless Tobacco: Never Alcohol Use Standard Drinks/Week Comments No 0 (1 standard drink = 0.6 oz pur e alcohol) Sex Assigned at Date Recorded Not on file documented as of this encounter Plan of Treatment Not on file documented as of this encounter Visit Diagnoses Not on filedocumented in this encounter Care Teams Fruit Or Nut Farmworker Relationship Specialty Start Date End Date Chantale Walters MD PCP - General Internal Medicine 05/14/15 10/10/20 [facility], Pcp PCP - General Internal Medicine 10/11/20 documented as of this encounter
--- OUTSIDE RECORDS SUMMARY | 2024-08-11 17:04 | XMS_ITS | Encounter Summary ---
Author Organization [facility] Address [address] [place] [address] Care Team Providers Care News Specialist Name Role Phone Chantale Walters MD Primary Care Provider Shelia avalos [facility], Pcp Primary Care Provider Brandi camejo Encounter Details Date Type Department Care Team Description 12/24/2016 Orders Only Adult Medicine [address] [address] Chantale Walters MD Social History Tobacco Use Types Packs/Day Years Used Date Smoking Tobacco: Never Alcohol Use Standard Drinks/Week Comments No 0 (1 standard drink = 0.6 oz pur e alcohol) Sex Assigned at Date Recorded Not on file documented as of this encounter Plan of Treatment Not on file documented as of this encounter Visit Diagnoses Not on filedocumented in this encounter Care Teams News Specialist Relationship Specialty Start Date End Date Chantale Walters MD PCP - General Internal Medicine 05/14/15 10/10/20 [facility], Pcp PCP - General Internal Medicine 10/11/20 documented as of this encounter
--- OUTSIDE RECORDS SUMMARY | 2024-08-11 17:04 | XMS_ITS | Encounter Summary ---
Author Organization [facility] Address [address] [place] [address] Care Team Providers Care Weight Loss Consultant Name Role Phone Chantale Walters MD Primary Care Provider Shelia avalos [facility], Pcp Primary Care Provider Brandi camejo Encounter Details Date Type Department Care Team Description 10/03/2020 [facility] Medical Records [address] [place] [id number] Abstract, Provider Social History Tobacco Use Types Packs/Day Years [...] on filedocumented in this encounter Care Teams Weight Loss Consultant Relationship Specialty Start Date End Date Chantale Walters MD PCP - General Internal Medicine 05/14/15 10/10/20 [facility], Pcp PCP - General Internal Medicine 10/11/20 documented as of this encounter
--- OUTSIDE RECORDS SUMMARY | 2024-08-11 17:04 | XMS_ITS | Encounter Summary ---
Author Organization [facility] Address [address] [place] [address] Care Team Providers Care Safety Glass Installer Name Role Phone Chantale Walters MD Primary Care Provider Shelia Koo Pcp Primary Care Provider Brandi camejo Encounter Details Date Type Department Care Team Description 02/13/2016 Pt. Non Urgent Medical Question Medicine/Pediatrics - [address] [phone] Chantale Walters MD Social History Tobacco Use Types Packs/Day Years Used Date Smoking Tobacco: Never Alcohol Use Standard Drinks/Week Comments No 0 (1 standard drink = 0.6 oz pur e alcohol) Sex Assigned at Date Recorded Not on file documented as of this encounter Progress Notes * Loyda Paz M.A. - 02/13/2016 12:25 PM EDTFrom: Alo Sharp To: Chantale Trinidad MD Sent: 02/13/2016 6:52 AM EDT Subject: low testosterone I have low testosterone which you can tell by looking at my records, I asked the pharmacy to refillmy prescription for androderm several days ago. My preference would be androgel which the last insurance company stopped covering. If you could please send a prescription for one of them to the pharmacy it would be appreciated. If you need to run blood work first please let me know and I'll come in Thank you. documented in this encounter Plan of Treatment Not on file documented as of this encounter Visit Diagnoses Not on filedocumented in this encounter Care Teams Safety Glass Installer Relationship Specialty Start Date End Date Chantale Walters MD PCP - General Internal Medicine 05/14/15 10/10/20 [facility], Pcp PCP - General Internal Medicine 10/11/20 documented as of this encounter
--- OUTSIDE RECORDS SUMMARY | 2024-08-11 17:04 | XMS_ITS | Clinical Summary ---
Author Organization [facility] Address [address] [place] [address] Care Team Providers Care Travelift Operator Name Role Phone Annette So MD Primary Care Provider [phone] Medications BUDESONIDE, INHALATION, (PULMICORT) 0.5 MG/2ML nebulizer solution USE DIRECTED. 1 0 02/05/2011 Active Active Problems Problem Noted Date Diagnosed Date Chronic maxillary sinusitis 12/25/2012 Chronic ethmoidal sinusitis 12/25/2012 Hypertrophy of nasal turbinates 11/15/2012 Sleep apnea 11/15/2012 Disturbance of smell 02/05/2011 Snoring 02/05/2011 Acquired deviated nasal septum 02/05/2011 Headache 02/05/2011 Chronic sinusitis 02/05/2011 Family History Medical History Relation Name Comments Allergies (med/food/envrnmt) Other Reported Allergies : Family History Asthma Other Asthma : Family History Cancer (?Type) Other Cancer : Fami ly History Diabetes Other Diabetes Mellit us : Family History Hearing Loss Other Hearing Loss : Family History Hypertension Other Hypertension : Family History Thyroid Disorder Other Thyroid Dis order : Family History Relation Name Status Comments Other Social History Tobacco Use Types Packs/Day Years Used Date Smoking Tobacco: Never Assessed Sex and Gender Information Value Date Recorded Sex Assigned at Not on file Legal Sex Male 11:21 AM EDT Gender Identity Not on file Sexual Orientation Not on file Last Filed Vital Signs Vital Sign Reading Time Taken Comments Blood Pressure 137/84 02/05/2011 2:07 PM EDT Pulse 74 02/05/2011 2:07 PM EDT Temperature - - Respiratory Rate 24 02/05/2011 2:07 PM EDT Oxygen Saturation - - Inhaled Oxygen Concentration - - Weight 132 kg (289 lb 15.9 oz) 02/05/2011 2:07 P M EDT Height 182.9 cm (6') 02/05/2011 2:07 PM EDT Body Mass Index 39.33 02/05/2011 2:07 PM EDT Plan of Treatment Health Maintenance Due Date Last Done Comments Hepatitis C Screening 1965 DTaP/Tdap/Td (1 - Tdap) 09/26/1983 Hep B (1 of 3 - 19+ 3-dose series) 1984 Pneumococcal 50+ years (1 of 1 - PCV) 09/26/2015 Zoster (Shingrix) (1 of 2) 09/26/2015 COVID-19 Vaccine ( - 2023-2 5 season) 2024 Influenza (#1) 2024 HPV Vaccine Aged Out No longer eligi ble based on patient's age to complete this topic Hep A Aged Out No longer eligi ble based on patient's age to complete this topic Hib Aged Out No longer eligi ble based on patient's age to complete this topic Meningococcal ACWY Aged Out No longer eligible based on patient's age to complete this topic Care Teams Travelift Operator Relationship Specialty Start Date End Date Annette So MD [address] [place] [address] PCP - General 01/18/23
--- OUTSIDE RECORDS SUMMARY | 2024-08-11 17:04 | XMS_ITS | Encounter Summary ---
Author Organization [facility] Address [address] [place] [address] Care Team Providers Care Asset Protection Greeter Name Role Phone Chantale Walters MD Primary Care Provider Shelia avalos [facility], Pcp Primary Care Provider Brandi camejo Encounter Details Date Type Department Care Team Description 06/30/2019 [facility] Medical Records [address] [place] [address] Abstract, Provider Social History Tobacco Use Types [...] on filedocumented in this encounter Care Teams Asset Protection Greeter Relationship Specialty Start Date End Date Chantale Walters MD PCP - General Internal Medicine 05/14/15 10/10/20 [facility], Pcp PCP - General Internal Medicine 10/11/20 documented as of this encounter
--- OUTSIDE RECORDS SUMMARY | 2024-08-11 17:04 | XMS_ITS | Encounter Summary ---
Author Organization [facility] Address [address] [place] [address] Care Team Providers Care Build And Deployment Engineer Name Role Phone Cahntale Walters MD Primary Care Provider Shelia Koo, Pcp Primary Care Provider Brandi camejo Encounter Details Date Type Department Care Team Description 09/21/2016 Pt. Non Urgent Medical Question Medicine/Pediatrics - [address] [address] Chantale Walters MD Social History Tobacco Use Types Packs/Day Years Used Date Smoking Tobacco: Never Alcohol Use Standard Drinks/Week Comments No 0 (1 standard drink = 0.6 oz pur e alcohol) Sex Assigned at Date Recorded Not on file documented as of this encounter Progress Notes * Griselda Evangelista.P.N. - 09/22/2016 9:41 AM EDTFrom: Alo Sharp To: Chantale Trinidad MD Sent: 09/21/2016 5:52 PM EDT Subject: Sinus Infection I am having a sinus infection again. The same symptoms as the last time, with the addition of a nose bleed. If you could either prescribe the same meds as last time or schedule me for an appointment it would be appreciated. Thank You; Alo Sharp documented in this encounter Plan of Treatment Not on file documented as of this encounter Visit Diagnoses Not on filedocumented in this encounter Care Teams Build And Deployment Engineer Relationship Specialty Start Date End Date Chantale Walters MD PCP - General Internal Medicine 05/14/15 10/10/20 [facility] Pcp PCP - General Internal Medicine 10/11/20 documented as of this encounter
--- OUTSIDE RECORDS SUMMARY | 2024-08-11 17:04 | XMS_ITS | Encounter Summary ---
Author Organization [facility] Address [address] [place] [address] Care Team Providers Care Director Community Organization Name Role Phone Chantale Walters MD Primary Care Provider Shelia Koo, Pcp Primary Care Provider Brandi camejo Reason for Visit * Reason Onset Date Comments Retail Store Clerk Feedback 08/19/2020 faxed referral [facility] Urology Encounter Details Date Type Department Care Team Description 08/19/2020 Telephone Adult Medicine [address] [address] Chantale Walters MD Retail Store Clerk Feedback (faxed referral [facility]) Social History Tobacco Use Types Packs/Day Years Used Date Smoking Tobacco: Never Smokeless Tobacco: Never Alcohol Use Standard Drinks/Week Comments No 0 (1 standard drink = 0.6 oz pur e alcohol) Sex Assigned at Date Recorded Not on file documented as of this encounter Miscellaneous Notes * Telephone Encounter - Veronica Berry - 08/19/2020 1:18 PM EST [facility] HCS Review Request Submission Status [ Save Response to Batch ] Request: [id number] [facility] Trace #: [id number] Subscriber: RENATA SHARP Submitter : CHANTALE SOLIS Submitter Type: Provider : 1965 Referral (#[id number]) Specialty Care Review Type: Initial Certification Status : Certified in total Service Type : Medical Care Place Of Service : Office Visits : 6 Service Date : 08/21/2020-08/21/2021 Service Providers Provider Name ID Provider Type TORIE KOTHARI NPI : [id number] Service Provider documented in this encounter Plan of Treatment Not on file documented as of this encounter Visit Diagnoses Not on filedocumented in this encounter Care Teams Director Community Organization Relationship Specialty Start Date End Date Chantale Walters MD PCP - General Internal Medicine 05/14/15 10/10/20 [facility], Pcp PCP - General Internal Medicine 10/11/20 documented as of this encounter
--- OUTSIDE RECORDS SUMMARY | 2024-08-11 17:04 | XMS_ITS | Encounter Summary ---
Author Organization [facility] Address [address] [place] [address] Care Team Providers Care Entertainment Manager Name Role Phone Chantale Walters MD Primary Care Provider Shelia avalos [facility], Pcp Primary Care Provider Brandi camejo Encounter Details Date Type Department Care Team Description 06/11/2017 Enrollment Management Vice President Report Medical Records [address] [place] [address] Primo Whitehead Social History Tobacco Use Types Packs/Day Years Used Date Smoking Tobacco: Never Alcohol Use Standard Drinks/Week Comments No 0 (1 standard drink = 0.6 oz pur e alcohol) Sex Assigned at Date Recorded Not on file documented as of this encounter Plan of Treatment Not on file documented as of this encounter Visit Diagnoses Not on filedocumented in this encounter Care Teams Entertainment Manager Relationship Specialty Start Date End Date Chantale Walters MD PCP - General Internal Medicine 05/14/15 10/10/20 [facility], Pcp PCP - General Internal Medicine 10/11/20 documented as of this encounter
--- OUTSIDE RECORDS SUMMARY | 2024-08-11 17:04 | XMS_ITS | Encounter Summary ---
Author Organization [facility] Address [address] [place] [address] Care Team Providers Care Group Care Worker Name Role Phone Chantale Walters MD [facility] Reason for Visit * Reason Onset Date Comments immunizations 10/22/2015 Encounter Details Date Type Department Care Team Description 10/22/2015 Telephone Medicine/Pediatrics - [address] [id number] Chantale Walters MD immunizations Social History Tobacco Use Types Packs/Day Years Used Date Smoking Tobacco: Never Alcohol Use Standard Drinks/Week Comments No 0 (1 standard drink = 0.6 oz pur e alcohol) Sex Assigned at Date Recorded Not on file documented as of this encounter Miscellaneous Notes * Telephone Encounter - Kaya Marcano - 10/22/2015 1:27 PM EDT Lm on vm to schedule * Telephone Encounter - Griselda YipPIreneNIrene - 10/22/2015 1:19 PM EDT Please book nurse visit * Telephone Encounter - Chantale Walters MD - 10/22/2015 12:40 PM EDT Ordered vaccine * Telephone Encounter - Griselda YipPIreneNIrene - 10/22/2015 12:20 PM EDT Please advise pt is 50 Y.O * Telephone Encounter - Daphne Garcia - 10/22/2015 12:16 PM EDT Pt wants the shingle vaccine. states she called the insurance company and they will cover thisimmunization. documented in this encounter Plan of Treatment Not on file documented as of this encounter Visit Diagnoses Diagnosis Need for zoster vaccination- Primary Need for prophylactic vaccination and inoculation against varicella documented in this encounter Care Teams Group Care Worker Relationship Specialty Start Date End Date Chantale Walters MD PCP - General Internal Medicine 05/14/15 10/10/20 [facility], Pcp PCP - General Internal Medicine 10/11/20 documented as of this encounter
--- OUTSIDE RECORDS SUMMARY | 2024-08-11 17:04 | XMS_ITS | Encounter Summary ---
Author Organization [facility] Address [address] [place] [address] Care Team Providers Care Tile And Mottle Supervisor Name Role Phone Chantale Walters MD Primary Care Provider Shelia avalos [facility], Pcp Primary Care Provider Brandi camejo Encounter Details Date Type Department Care Team Description 01/31/2018 Fingernail Sculptor Report Medical Records [address] [place] [address] Geo Mae MD Social History Tobacco Use Types Packs/Day [...] on filedocumented in this encounter Care Teams Tile And Mottle Supervisor Relationship Specialty Start Date End Date Chantale Walters MD PCP - General Internal Medicine 05/14/15 10/10/20 [facility], Pcp PCP - General Internal Medicine 10/11/20 documented as of this encounter
--- OUTSIDE RECORDS SUMMARY | 2024-08-11 17:04 | XMS_ITS | Encounter Summary ---
Author Organization [facility] Address [address] [place] [address] Care Team Providers Care Lawn Mower Sharpener Name Role Phone Chantale Walters MD Primary Care Provider Shelia avalos [facility], Pcp Primary Care Provider Brandi camejo Encounter Details Date Type Department Care Team Description 10/07/2017 Equine Pharmacology Technician Report Medical Records [address] [place] [address] Geo Mae MD Social History Tobacco Use [...] on filedocumented in this encounter Care Teams Lawn Mower Sharpener Relationship Specialty Start Date End Date Chantale Walters MD PCP - General Internal Medicine 05/14/15 10/10/20 Hayes, Pcp PCP - General Internal Medicine 10/11/20 documented as of this encounter
--- OUTSIDE RECORDS SUMMARY | 2024-08-11 17:04 | XMS_ITS | Encounter Summary ---
Author Organization [facility] Address [address] [place] [address] Care Team Providers Care Physician Office Rep Name Role Phone Chantale Walters MD Primary Care Provider Shelia avalos [facility], Pcp Primary Care Provider Brandi camejo Encounter Details Date Type Department Care Team Description 02/10/2017 Release of Information Medical Records [address] [place] [id number] Abstract, Provider Social History Tobacco Use Types [...] on filedocumented in this encounter Care Teams Physician Office Rep Relationship Specialty Start Date End Date Chantale Walters MD PCP - General Internal Medicine 05/14/15 10/10/20 Hayes, Pcp PCP - General Internal Medicine 10/11/20 documented as of this encounter
--- OUTSIDE RECORDS SUMMARY | 2024-08-11 17:04 | XMS_ITS | Clinical Summary ---
Author Organization [facility] Address [address] [place] [address] Care Team Providers Care Informatics Nurse Name Role Phone Chantale Trinidad MD Primary Care Provider [phone] Allergies Active Allergy Reactions Criticality Noted Date Comments Piroxicam Other (see comments) 04/13/2017 Nose bleeds Other reaction(s): OTHER Nose bleeds Medications amLODIPine (NORVASC) 10 mg tablet Take 10 mg by mouth. 9 Active amoxicillin (AMOXIL) 500 mg tablet Take 4 tabs PO 30-60 minutes prior to dental work. 9 Active chlorthalidone (HYGROTON) 25 mg tablet TK 1 T PO QD 1 9 Active cholecalciferol , vitamin D3, 2,000 unit tablet Take by mouth. Activ e levothyroxine (SYNTHROID, LEVOTHROID) 50 mcg tablet TAKE 1 TABLET BY MOUTH DAILY 9 Active oxybutynin XL (DITROPAN-XL) 10 mg 24 hr tablet TAKE 1 TABLET BY MOUTH DAILY 9 Active ibuprofen (ADVIL,MOTRIN) 600 mg tablet Take 600 mg by mouth. 8 Active butalbital-acet aminophen-caff 50-300-40 mg capsule Take 1 tablet by mouth. 9 Active pantoprazole (PROTONIX) 40 mg EC tablet TK 1 T PO ONCE DAILY 0 9 Active testosterone (ANDROGEL) 1 % (25 mg/2.5gram) gel in packet Apply one pump transdermal daily to the axilla 8 Active diazePAM (VALIUM) 2 mg tablet TK 1 T PO Q 12 H PRN FOR ANXIETY 0 9 Active FLUoxetine (PROzac) 40 mg capsule TK 1 C PO QD 1 9 Active fluticasone propionate (FLONASE) 50 mcg/actuation nasal spray Administer 2 sprays into affected nostril(s). Active oxyCODONE-aceta minophen (PERCOCET) 5-325 mg per tablet TK 1 T PO Q 6 H PRN FOR PAIN 0 9 Active potassium chloride (K-TAB) 20 mEq CR tablet TK 1 T PO QD 1 9 Active sertraline (ZOLOFT) 50 mg tablet 9 Active propranolol LA (INDERAL LA) 80 mg 24 hr capsule Take 80 mg by mouth. 160mg 1 Active lisinopriL (PRINIVIL) 20 mg tablet Take 40 mg by mouth. 1 Active diclofenac (VOLTAREN) 75 mg EC tablet TAKE 1 TABLET BY MOUTH TWICE DAILY WITH FOOD NEEDED FOR PAIN 1 Active NIFEdipine XL (PROCARDIA XL) 30 mg 24 hr tablet Take 30 mg by mouth daily. Active hydrOXYchloroQU INE (PLAQUENIL) 200 mg tablet Take 2 tablets (400 mg total) by mouth daily. 180 tablet 1 1 Active pramipexole (MIRAPEX) 0.25 mg tablet TAKE 1 TABLET BY MOUTH EVERY NIGHT AT BEDTIME 90 tablet 1 1 Active Active Problems Problem Noted Date Diagnosed Date Primary osteoarthritis of both hips 08/09/2020 Family History Medical History Relation Comments Thyroid disease Brother COPD Father Cancer Father Diabetes Father Heart disease Father ALS Maternal Grandfather Diabetes Maternal Grandmother Heart disease Maternal Grandmother Arthritis Mother Cancer Mother Depression Mother Diabetes Mother Heart disease Mother Liver disease Mother Cancer Paternal Grandfather Relation Status Comments Brother Father Maternal Grandfather Maternal Grandmother Mother Paternal Grandfather Sister Alive Social History Tobacco Use Types Packs/Day Years Used Date Smoking Tobacco: Never Smokeless Tobacco: Never Alcohol Use Standard Drinks/Week Comments No 0 (1 standard drink = 0.6 oz pur e alcohol) Sex and Gender Information Value Date Recorded Sex Assigned at Not on file Legal Sex Male 1:06 AM EST Gender Identity Not on file Sexual Orientation Not on file Last Filed Vital Signs Vital Sign Reading Time Taken Comments Blood Pressure 141/80 02/07/2021 3:56 PM EDT Pulse 74 02/07/2021 3:56 PM EDT Temperature - - Respiratory Rate - - Oxygen Saturation - - Inhaled Oxygen Concentration - - Weight 137 kg (301 lb) 02/07/2021 3:56 PM EDT Height 182.9 cm (6') 08/09/2020 3:17 PM EST Body Mass Index 40.82 08/09/2020 3:17 PM EST Plan of Treatment Health Maintenance Due Date Last Done Comments CT Colonography 1965 Colonoscopy 1965 Colorectal Cancer Screening 1965 FIT-DNA (Cologuard) 1965 FIT 1965 FOBT 1965 Flex Sigmoidoscopy - 5y 1965 HIV Screening 1965 Hepatitis B Vaccines (1 of 3 - 19+ 3-dose series) 1984 Zoster Vaccines (1 of 2) 09/26/2015 COVID-19 Vaccine (2 - 2023-2 5 season) 2024 10/05/2020 Influenza Vaccine (#1) 2024 5, 02/03/2015 DTaP,Tdap,and Td Vaccines (2 - Td or Tdap) 04/16/2030 04/16/2020, 12/15/2010 HPV Vaccines Aged Out No longer eligi ble based on patient's age to complete this topic Hepatitis A Vaccines Aged Out No long er eligible based on patient's age to complete this topic MMR Vaccines Aged Out No longer eligi ble based on patient's age to complete this topic Meningococcal Vaccine Aged Out No michelet alesia eligible based on patient's age to complete this topic Pneumococcal Vaccine: Pediatrics (0 to 5 Years) and At-Risk Patients (6 to 64 Years) Aged Out No longer eligible b ased on patient's age to complete this topic Insurance [address] [place], [place] [id number] Care Teams Informatics Nurse Relationship Specialty Start Date End Date Chantale Trinidad MD [address] [place] [address] PCP - General Internal Medicine 02/07/21
--- OUTSIDE RECORDS SUMMARY | 2024-08-11 17:04 | XMS_ITS | Encounter Summary ---
Author Organization [facility] Address [address] [place] [address] Care Team Providers Care Math And Science Division Chair Name Role Phone Chantale Walters MD Primary Care Provider Shelia avalos [facility], Pcp Primary Care Provider Brandi camejo Encounter Details Date Type Department Care Team Description 12/22/2016 Telephone Medicine/Pediatrics [address] [phone] Chantale Walters MD Social History Tobacco Use [...] on filedocumented in this encounter Care Teams Math And Science Division Chair Relationship Specialty Start Date End Date Chantale Walters MD PCP - General Internal Medicine 05/14/15 10/10/20 Hayes, Pcp PCP - General Internal Medicine 10/11/20 documented as of this encounter
--- OUTSIDE RECORDS SUMMARY | 2024-08-11 17:04 | XMS_ITS | Encounter Summary ---
Author Organization [facility] Address [address] [place] [address] Care Team Providers Care Helper/Driver Name Role Phone Chantale Walters MD Primary Care Provider Shelia avalos [facility], Pcp Primary Care Provider Brandi camejo Encounter Details Date Type Department Care Team Description 09/05/2019 [facility] Medical Records [address] [place] [address] Abstract, Provider Social History Tobacco Use Types [...] on filedocumented in this encounter Care Teams Helper/Driver Relationship Specialty Start Date End Date Chantale Walters MD PCP - General Internal Medicine 05/14/15 10/10/20 Hayes, Pcp PCP - General Internal Medicine 10/11/20 documented as of this encounter
--- OUTSIDE RECORDS SUMMARY | 2024-08-11 17:04 | XMS_ITS | Encounter Summary ---
Author Organization [facility] Address [address] [place] [address] Care Team Providers Care Shopper Insights Manager Name Role Phone Chantale Walters MD Primary Care Provider Shelia avalos [facility], Pcp Primary Care Provider Brandi camejo Encounter Details Date Type Department Care Team Description 05/05/2017 [facility] Medical Records [address] [place] [address] Abstract, Provider Social History Tobacco Use Types [...] on filedocumented in this encounter Care Teams Shopper Insights Manager Relationship Specialty Start Date End Date Chantale Walters MD PCP - General Internal Medicine 05/14/15 10/10/20 Hayes, Pcp PCP - General Internal Medicine 10/11/20 documented as of this encounter
--- OUTSIDE RECORDS SUMMARY | 2024-08-11 17:04 | XMS_ITS | Encounter Summary ---
Author Organization [facility] Address [address] [place] [address] Care Team Providers Care Pmp Certified Project Manager Name Role Phone Chantale Walters MD Primary Care Provider Shelia avalos [facility], Pcp Primary Care Provider Brandi camejo Encounter Details Date Type Department Care Team Description 06/17/2020 Transfer Records Medical Records [address] [place] [address] Abstract, Provider Social History Tobacco Use Types Packs/Day Years Used Date Smoking Tobacco: Never Smokeless Tobacco: Never Alcohol Use Standard Drinks/Week Comments No 0 (1 standard drink = 0.6 oz pur e alcohol) Sex Assigned at Date Recorded Not on file COVID-19 Exposure Response Date Recorded In the last month, have you been in contact with someone who was confirmed or suspected to have Coronavirus / COVID-19? No / Unsure 06/20/2020 3:02 PM EST documented as of this encounter Plan of Treatment Not on file documented as of this encounter Visit Diagnoses Not on filedocumented in this encounter Care Teams Pmp Certified Project Manager Relationship Specialty Start Date End Date Chantale Walters MD PCP - General Internal Medicine 05/14/15 10/10/20 Hayes, Pcp PCP - General Internal Medicine 10/11/20 documented as of this encounter
--- OUTSIDE RECORDS SUMMARY | 2024-08-11 17:04 | XMS_ITS | Encounter Summary ---
Author Organization [facility] Address [address] [place] [address] Care Team Providers Care Chlorine Operator Name Role Phone Chantale Walters MD Primary Care Provider Shelia avalos [facility], Pcp Primary Care Provider Brandi camejo Encounter Details Date Type Department Care Team Description 09/16/2020 [facility] Medical Records [address] [place] [address] Abstract, Provider Social History Tobacco Use Types [...] on filedocumented in this encounter Care Teams Chlorine Operator Relationship Specialty Start Date End Date Chantale Walters MD PCP - General Internal Medicine 05/14/15 10/10/20 Hayes, Pcp PCP - General Internal Medicine 10/11/20 documented as of this encounter
--- OUTSIDE RECORDS SUMMARY | 2024-08-11 17:04 | XMS_ITS | Encounter Summary ---
Author Organization [facility] Address [address] [place] [address] Care Team Providers Care Drawing In Machine Tender Name Role Phone Chantale Walters MD Primary Care Provider Shelia avalos [facility], Pcp Primary Care Provider Brandi camejo Encounter Details Date Type Department Care Team Description 12/01/2018 [facility] Controlled Substance Contract Medical Records [address] [place] [id number] Abstract, Provider Social History Tobacco Use Types [...] on filedocumented in this encounter Care Teams Drawing In Machine Tender Relationship Specialty Start Date End Date Chantale Walters MD PCP - General Internal Medicine 05/14/15 10/10/20 Hayes, Pcp PCP - General Internal Medicine 10/11/20 documented as of this encounter
--- OUTSIDE RECORDS SUMMARY | 2024-08-11 17:04 | XMS_ITS | Encounter Summary ---
Author Organization [facility] Address [address] [place] [address] Care Team Providers Care Security Manager Name Role Phone Chantale Walters MD Primary Care Provider Shelia Koo, Pcp Primary Care Provider Brandi camejo Encounter Details Date Type Department Care Team Description 12/16/2018 Pt. Non Urgent Medical Question Medicine/Pediatrics - [address] [phone] Chantale Walters MD Social History Tobacco Use Types Packs/Day Years Used Date Smoking Tobacco: Never Smokeless Tobacco: Never Alcohol Use Standard Drinks/Week Comments No 0 (1 standard drink = 0.6 oz pur e alcohol) Sex Assigned at Date Recorded Not on file documented as of this encounter Progress Notes * Griselda Pelletier L.P.N. - 12/16/2018 10:26 AM EDTFrom: Alo Sharp To: Chantale Walters MD Sent: 12/16/2018 2:56 AM EDT Subject: sinus infection Eduardalo Dr Walters, On December 15 at 23:53 hours I went to the E[facility]R in [place] for a sinus infection. They put me on Flonase2 sprays once a day each nostril. Also Augmentin 875 mg 1 tablet every 12 hours for 10 days. I would like to book a follow-up appointment with you when you think it's necessary. Thank you, G documented in this encounter Plan of Treatment Not on file documented as of this encounter Visit Diagnoses Not on filedocumented in this encounter Care Teams Security Manager Relationship Specialty Start Date End Date Chantale Walters MD PCP - General Internal Medicine 05/14/15 10/10/20 [facility], Pcp PCP - General Internal Medicine 10/11/20 documented as of this encounter
--- OUTSIDE RECORDS SUMMARY | 2024-08-11 17:04 | XMS_ITS | Encounter Summary ---
Author Organization [facility] Address [address] [place] [address] Care Team Providers Care Endocrinologist Name Role Phone Chantale Walters MD Primary Care Provider Shelia Koo, Pcp Primary Care Provider Brandi camejo Encounter Details Date Type Department Care Team Description 11/22/2017 Scale Adjuster Report Medical Records [address] [place] [address] Christopher Kumar, PA-C [address] [place] [address] Social History Tobacco Use Types Packs/Day Years [...] on filedocumented in this encounter Care Teams Endocrinologist Relationship Specialty Start Date End Date Chantale Walters MD PCP - General Internal Medicine 05/14/15 10/10/20 Hayes, Pcp PCP - General Internal Medicine 10/11/20 documented as of this encounter
--- OUTSIDE RECORDS SUMMARY | 2024-08-11 17:04 | XMS_ITS | Encounter Summary ---
Author Organization [facility] Address [address] [place] [address] Care Team Providers Care Bundler Name Role Phone Chantale Walters MD Primary Care Provider Shelia avalos [facility], Pcp Primary Care Provider Brandi camejo Encounter Details Date Type Department Care Team Description 08/10/2019 Controlled Substance Plan Medical Records [address] [place] [address] Abstract, Provider Social History Tobacco Use Types [...] on filedocumented in this encounter Care Teams Bundler Relationship Specialty Start Date End Date Chantale Walters MD PCP - General Internal Medicine 05/14/15 10/10/20 [facility], Pcp PCP - General Internal Medicine 10/11/20 documented as of this encounter
--- OUTSIDE RECORDS SUMMARY | 2024-08-11 17:04 | XMS_ITS | Encounter Summary ---
Author Organization [facility] Address [address] [place] [address] Care Team Providers Care Gas Operations Analyst Name Role Phone Chantale Walters MD Primary Care Provider Shelia avalos [facility], Pcp Primary Care Provider [facility] Reason for Visit * Reason Onset Date Comments Account Contact Associate Feedback 10/03/2015 Dr KEYON DIAZ Encounter Details Date Type Department Care Team Description 10/03/2015 Telephone Adult Medicine - [address] [id number] Chantale Walters MD Account Contact Associate Feedback (Dr KEYON DIAZ) Social History Tobacco Use Types Packs/Day Years Used Date Smoking Tobacco: Never Alcohol Use Standard Drinks/Week Comments No 0 (1 standard drink = 0.6 oz pur e alcohol) Sex Assigned at Date Recorded Not on file documented as of this encounter Miscellaneous Notes * Telephone Encounter - Chantale Walters MD - 10/03/2015 8:59 AM EDT Ok thank you * Telephone Encounter - Sun Rodriguez - 10/03/2015 8:22 AM EDT FYI, You recently placed an order for this patient to see Dr. Traore at [facility] with in 1-2 weeks. I am unable to book this appointment with in the time frame because the patient has not yet had his x-ray. Icalled the patient to inform him I was unable to book his appointment at this time that he would need to have X-ray done as soon as possible in order for me to book his appointment. Thank you, Sun Referrals Coordinator [facility] documented in this encounter Plan of Treatment Not on file documented as of this encounter Visit Diagnoses Not on filedocumented in this encounter Care Teams Gas Operations Analyst Relationship Specialty Start Date End Date Chantale Walters MD PCP - General Internal Medicine 05/14/15 10/10/20 [facility], Pcp PCP - General Internal Medicine 10/11/20 documented as of this encounter
--- OUTSIDE RECORDS SUMMARY | 2024-08-11 17:04 | XMS_ITS | Encounter Summary ---
Author Organization [facility] Address [address] [place] [address] Care Team Providers Care Baggage Agent Name Role Phone Chantale Walters MD Primary Care Provider Shelia avalos [facility], Pcp Primary Care Provider Brandi camejo Encounter Details Date Type Department Care Team Description 07/29/2020 [facility] Medical Records [address] [place] [id number] Abstract, Provider Social History Tobacco Use Types [...] on filedocumented in this encounter Care Teams Baggage Agent Relationship Specialty Start Date End Date Chantale Walters MD PCP - General Internal Medicine 05/14/15 10/10/20 Hayes, Pcp PCP - General Internal Medicine 10/11/20 documented as of this encounter
--- OUTSIDE RECORDS SUMMARY | 2024-08-11 17:04 | XMS_ITS | Encounter Summary ---
Author Organization [facility] Address [address] [place] [address] Care Team Providers Care Clinical Investigator Name Role Phone Chantale Walters MD Primary Care Provider Shelia avalos [facility], Pcp Primary Care Provider Brandi camejo Encounter Details Date Type Department Care Team Description 05/17/2017 Research Spec Report Medical Records [address] [place] [address] Abstract, Provider Social History Tobacco Use Types [...] on filedocumented in this encounter Care Teams Clinical Investigator Relationship Specialty Start Date End Date Chantale Walters MD PCP - General Internal Medicine 05/14/15 10/10/20 Hayes, Pcp PCP - General Internal Medicine 10/11/20 documented as of this encounter
--- OUTSIDE RECORDS SUMMARY | 2024-08-11 17:04 | XMS_ITS | Encounter Summary ---
Author Organization [facility] Address [address] [place] [address] Care Team Providers Care Lead Applier Name Role Phone Chantale Walters MD Primary Care Provider Shelia avalos [facility], Pcp Primary Care Provider Brandi camejo Reason for Visit * Reason Onset Date Comments REFERRAL 02/17/2018 Encounter Details Date Type Department Care Team Description 02/17/2018 Telephone [place] [address] Low Lopes MD REFERRAL Social History Tobacco Use Types Packs/Day Years Used Date Smoking Tobacco: Never Smokeless Tobacco: Never Alcohol Use Standard Drinks/Week Comments No 0 (1 standard drink = 0.6 oz pur e alcohol) Sex Assigned at Date Recorded Not on file documented as of this encounter Miscellaneous Notes * Telephone Encounter - Low Lopes MD - 02/17/2018 9:41 AM EDT Hospital. * Telephone Encounter - Rosie Elam M.A. - 02/17/2018 9:37 AM EDT Please review and advise/map * Telephone Encounter - Mickie Salinas - 02/17/2018 8:57 AM EDT Patient has been referred for a screening colonoscopy. Please review problem list. Should patient be scheduled here or at the hospital? documented in this encounter Plan of Treatment Not on file documented as of this encounter Visit Diagnoses Not on filedocumented in this encounter Care Teams Lead Applier Relationship Specialty Start Date End Date Chantale Walters MD PCP - General Internal Medicine 05/14/15 10/10/20 [facility], Pcp PCP - General Internal Medicine 10/11/20 documented as of this encounter
--- OUTSIDE RECORDS SUMMARY | 2024-08-11 17:04 | XMS_ITS | Continuity of Care Document ---
Author Name [facility] Organization [facility] Care Team Providers Care Department [employer] Name Role Phone [facility] Unavailable Unavailable Social History Combined list of available smoking, tobacco, and other social history from Department of Defense and Veterans Affairs facilities. Social History Type Response Date Comment Sourc e This section is an empty social history section. [facility]
--- OUTSIDE RECORDS SUMMARY | 2024-08-11 17:04 | XMS_ITS | Encounter Summary ---
Author Organization [facility] Address [address] [place] [address] Care Team Providers Care Civil Engineering Project Designer Name Role Phone Chantale Walters MD Primary Care Provider Shelia avalos [facility], Pcp Primary Care Provider Brandi camejo Encounter Details Date Type Department Care Team Description 09/24/2017 Hospital Medical Records [address] [place] [address] [place] Lugo PA-C Social History Tobacco Use Types Packs/Day Years [...] on filedocumented in this encounter Care Teams Civil Engineering Project Designer Relationship Specialty Start Date End Date Chantale Walters MD PCP - General Internal Medicine 05/14/15 10/10/20 [facility], Pcp PCP - General Internal Medicine 10/11/20 documented as of this encounter
--- OUTSIDE RECORDS SUMMARY | 2024-08-11 17:04 | XMS_ITS | Encounter Summary ---
Author Organization [facility] Address [address] [place] [address] Care Team Providers Care Telephone Assembler Name Role Phone Chantale Walters MD Primary Care Provider Shelia Koo, Pcp Primary Care Provider Brandi camejo Reason for Referral * EXTERNAL (Routine) - Authorized/Booked Specialty Diagnoses / Procedures Referred By Chaya gomes Referred To Contact Endocrinology Procedures REFERRAL TO ENDOCRINOLOGY Chantale Walters MD [address] [place] [id number] External Endocrinology Referral ID Status Reason Start Date Expiration Date V isits Requested Visits Authorized SEE NOTE Authorized/B ooked 12/01/2018 03/04/2019 1 1 Reason for Visit * Reason Onset Date Comments REFERRAL 12/01/2018 endocrine Encounter Details Date Type Department Care Team Description 12/01/2018 Telephone Adult Medicine [address] [address] Chantale Walters MD REFERRAL (endocrine) Social History Tobacco Use Types Packs/Day Years Used Date Smoking Tobacco: Never Smokeless Tobacco: Never Alcohol Use Standard Drinks/Week Comments No 0 (1 standard drink = 0.6 oz pur e alcohol) Sex Assigned at Date Recorded Not on file documented as of this encounter Miscellaneous Notes * Telephone Encounter - Chantale Walters MD - 12/01/2018 4:15 PM EDT Yumiko fairly sure I specified external [place] on original referral but I have placed a new order nonetheless * Telephone Encounter - Sun Alexandra - 12/01/2018 2:41 PM EDT This patient has an endocrine referral to Dr Lugo for testosterone therapy but patient has declined to book stating he always is referred to Kasey at the [facility] for appointments. Please refer External documented in this encounter Plan of Treatment Not on file documented as of this encounter Visit Diagnoses Not on filedocumented in this encounter Care Teams Telephone Assembler Relationship Specialty Start Date End Date Chantale Walters MD PCP - General Internal Medicine 05/14/15 10/10/20 [facility], Pcp PCP - General Internal Medicine 10/11/20 documented as of this encounter
--- OUTSIDE RECORDS SUMMARY | 2024-08-11 17:04 | XMS_ITS | Encounter Summary ---
Author Organization [facility] Address [address] [place] [address] Care Team Providers Care Ton Container Shipper Name Role Phone Chantale Walters MD Primary Care Provider Shelia avalos [facility], Pcp Primary Care Provider Brandi camejo Encounter Details Date Type Department Care Team Description 12/24/2012 Hospital Medical Records [address] [place] [address] Abstract, Provider Social History Tobacco Use Types [...] on filedocumented in this encounter Care Teams Ton Container Shipper Relationship Specialty Start Date End Date Chantale Walters MD PCP - General Internal Medicine 05/14/15 10/10/20 [facility], Pcp PCP - General Internal Medicine 10/11/20 documented as of this encounter
--- OUTSIDE RECORDS SUMMARY | 2024-08-11 17:04 | XMS_ITS | Encounter Summary ---
Author Organization [facility] Address [address] [place] [address] Care Team Providers Care Payroll Specialist Name Role Phone Chantale Walters MD Primary Care Provider Shelia avalos [facility], Pcp Primary Care Provider Brandi camejo Encounter Details Date Type Department Care Team Description 04/03/2019 Pt. Non Urgent Medical Question Medicine/Pediatrics - [address] [phone] Chantale Walters MD Social History Tobacco Use Types Packs/Day Years Used Date Smoking Tobacco: Never Smokeless Tobacco: Never Alcohol Use Standard Drinks/Week Comments No 0 (1 standard drink = 0.6 oz pur e alcohol) Sex Assigned at Date Recorded Not on file documented as of this encounter Progress Notes * Kelli Carbone Rn - 04/03/2019 11:07 AM EDTFrom: Alo Sharp To: Chantale Walters MD Sent: 04/03/2019 10:49 AM EDT Subject: doctors note Good morning Dr Walters I am currently running a fever of 99.5 and I feel like crap. I am staying out of work tonight and Iwas wondering if I could get a note for work. Thank you Alo documented in this encounter Plan of Treatment Not on file documented as of this encounter Visit Diagnoses Not on filedocumented in this encounter Care Teams Payroll Specialist Relationship Specialty Start Date End Date Chantale Walters MD PCP - General Internal Medicine 05/14/15 10/10/20 [facility], Pcp PCP - General Internal Medicine 10/11/20 documented as of this encounter
--- OUTSIDE RECORDS SUMMARY | 2024-08-11 17:05 | XMS_ITS | Encounter Summary ---
Author Organization [facility] Address [address] [place] [address] Care Team Providers Care Telesales Professional Name Role Phone Chantale Walters MD Primary Care Provider Shelia Koo, Pcp Primary Care Provider Brandi camejo Encounter Details Date Type Department Care Team Description 09/22/2018 Refill Medicine/Pediatrics - [address] [phone] Jose Phelps PA-C Social History Tobacco Use Types Packs/Day Years Used Date Smoking Tobacco: Never Smokeless Tobacco: Never Alcohol Use Standard Drinks/Week Comments No 0 (1 standard drink = 0.6 oz pur e alcohol) Sex Assigned at Date Recorded Not on file documented as of this encounter Miscellaneous Notes * Telephone Encounter - Sima Posadas M.A. - 09/22/2018 1:28 PM EDT Request refused by Jose Phelps PA-C [employer] message to pt to schedule follow up and request med again. * Telephone Encounter - Jose Phelps PA-C - 09/22/2018 12:27 PM EDT Is he on CSC for this? Supposed to be on q3 month FUs? Or he is going to be getting this from his Rheum specialist? * Telephone Encounter - Sima Berry RN - 09/22/2018 11:04 AM EDT Last ov 02/03/18 Last refill 04/04/19 Lab Results Component Value Date URINEOXYCOD NEGATIVE 04/12/2018 URBENZO NEGATIVE 04/12/2018 URAMPHETAMIN NEGATIVE 04/12/2018 URMARIJUANA NEGATIVE 04/12/2018 UROPIATES NEGATIVE 04/12/2018 URBARBITUATE NEGATIVE 04/12/2018 URCOCAINE NEGATIVE 04/12/2018 Controlled substance contract and last issue date of medication reviewed. Patient is due for medication. [place] to provider * Telephone Encounter - Sima Berry RN - 09/22/2018 11:01 AM EDTFrom: Alo Sharp To: Jose Phelps PA-C Sent: 09/22/2018 10:30 AM EDT Subject: Medication Renewal Request Original authorizing provider: VARUN [place] would like a refill of the following medications: oxycodone-acetaminophen (PERCOCET) 5-325 MG per tablet [Jose Phelps PA-C] [id number] [facility] Comment: documented in this encounter Plan of Treatment Not on file documented as of this encounter Visit Diagnoses Not on filedocumented in this encounter Care Teams Telesales Professional Relationship Specialty Start Date End Date Chantale Walters MD PCP - General Internal Medicine 05/14/15 10/10/20 [facility], Pcp PCP - General Internal Medicine 10/11/20 documented as of this encounter
--- OUTSIDE RECORDS SUMMARY | 2024-08-11 17:05 | XMS_ITS | Clinical Summary ---
Author Organization [facility] Address [address] [place] [address] Care Team Providers Care Accounting Administrator Name Role Phone Unavailable Primary Care Provider Unavailabl e Allergies Active Allergy Reactions Criticality Noted Date Comments Nka 11/13/2014 Medications Medication Sig Dispensed Refills Start Date End Date Status RAPAFLO 8 MG CAPS 0 04/23/2015 Active tamsulosin (FLOMAX) 0.4 MG CAPS Take 1 capsule (0.4 mg total) by mouth daily. 90 capsule 3 04/30/2015 Active levothyroxine (SYNTHROID, LEVOXYL) tablet 50 mcgIndications:Congeni kike hypothyroidism without goiter Take 1 tablet (50 mcg total) by mouth daily. 60 tablet 0 05/27/2015 Active amLODIPine (NORVASC) tablet 5 mgIndications:Essentia l hypertension Take 1 tablet (5 mg total) by mouth daily. 60 tablet 0 05/27/2015 Active Qxnvbxktwq-HCFX-Qqwttc ne 50-300-40 MG CAPS TAKE 1 CAPSULE BY MOUTH EVERY 4 HOURS NEEDED 10 capsule 2 02/10/2016 Active cyclobenzaprine (FLEXERIL) 10 MG tablet Take 1 tablet (10 mg total) by mouth 2 (two) times a day as needed for muscle spasms. 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 60 tablet 2 11/27/2016 Active Active Problems Problem Noted Date Diagnosed Date Ingrown nail 06/25/2016 NSAID long-term use 05/24/2016 Osteoarthritis of multiple joints 02/23/2016 Acid reflux 11/13/2014 Coxitis 11/13/2014 Foot pain 11/13/2014 Calcaneal spur 11/13/2014 Clinical depression 11/13/2014 Dermatitis, eczematoid 11/13/2014 DDD (degenerative disc disease), lumbar 11/14/19 15 Rotator cuff syndrome of shoulder and allied dis orders 11/13/2014 Routine general medical exam ination at a health care facility 11/13/2014 Deformity of lower extremity 11/13/2014 Degenerative arthritis of hip 11/13/2014 History of migraine headaches 11/13/2014 BP (high blood pressure) 11/13/2014 Adult hypothyroidism 11/13/2014 Decreased testosterone level 11/13/2014 Arthritis of knee, degenerative 11/13/2014 Arthritis, degenerative 11/13/2014 Pain in joint involving lower leg 11/13/2014 Nqyrfndri-Kakvqtk-Xcuvhu disease 11/13/2014 Plantar fasciitis 11/13/2014 Apnea, sleep 11/13/2014 Immunizations Name Administration Dates Next Due Influenza TIV (IM) (inactive) 02/03/2015 Family History Medical History Relation Name Comments Diabetes Father Heart disease Father Heart disease Maternal Grandmother Rheum arthritis Maternal Grandmother Cancer Mother Diabetes Mother Heart disease Mother Relation Name Status Comments Father Maternal Grandmother Mother Social History Tobacco Use Types Packs/Day Years Used Date Smoking Tobacco: Heavy Smoker Smokeless Tobacco: Never Alcohol Use Standard Drinks/Week Comments No 0 (1 standard drink = 0.6 oz pur e alcohol) Sex and Gender Information Value Date Recorded Sex Assigned at Not on file Gender Identity Not on file Sexual Orientation Not on file Last Filed Vital Signs Vital Sign Reading Time Taken Comments Blood Pressure 132/82 11/17/2016 11:30 AM EDT Pulse 64 11/17/2016 11:30 AM EDT Temperature - - Respiratory Rate - - Oxygen Saturation - - Inhaled Oxygen Concentration - - Weight 137 kg (302 lb) 11/17/2016 11:30 AM EDT Height 182.9 cm (6') 11/17/2016 11:30 AM EDT Body Mass Index 40.96 11/17/2016 11:30 AM EDT Plan of Treatment Health Maintenance Due Date Last Done Comments Hepatitis B Vaccines (1 of 3 - 3-dose series) 1965 Hepatitis C Screening 1965 COVID-19 Vaccine (#1) 03/27/1966 Pneumococcal Vaccine (1 of 2 - PCV) 09/26/1971 Depression Screening 1977 Preventative Health Evaluation 09/26/1983 DTap / Tdap / Td (1 - Tdap) 1984 Colon Cancer Screening (Colonoscopy) 2010 Shingrix-Zoster Vaccine (1 of 2) 09/26/2015 Influenza Vaccine (#1) 2024 02/03/2015 RSV Ped < 20 months Aged Out No longe r eligible based on patient's age to complete this topic
--- OUTSIDE RECORDS SUMMARY | 2024-08-11 17:05 | XMS_ITS | Encounter Summary ---
Author Organization [facility] Address [address] [place] [address] Care Team Providers Care Banbury Machine Operator Name Role Phone Chantale Walters MD Primary Care Provider Shelia avalos [facility], Pcp Primary Care Provider Brandi camejo Encounter Details Date Type Department Care Team Description 10/17/2019 Pt. Non Urgent Medical Question Medicine/Pediatrics - [address] [phone] Chantale Walters MD Social History Tobacco Use Types Packs/Day Years Used Date Smoking Tobacco: Never Smokeless Tobacco: Never Alcohol Use Standard Drinks/Week Comments No 0 (1 standard drink = 0.6 oz pur e alcohol) Sex Assigned at Date Recorded Not on file documented as of this encounter Progress Notes * Griselda YipPMalik. - 10/17/2019 9:37 AM EDTFrom: Alo Sharp To: Chantale Walters MD Sent: 10/17/2019 7:28 AM EDT Subject: migraine Good morning, Somebody was supposed to call me from the [place] office yesterday at 3 for a telephone doctor's visit do to my migraine. Unfortunately nobody called, my migraine is now gone finally. But I still need a note for why I was out yesterday. Thank you Alo Sharp documented in this encounter Plan of Treatment Not on file documented as of this encounter Visit Diagnoses Not on filedocumented in this encounter Care Teams Banbury Machine Operator Relationship Specialty Start Date End Date Chantale Walters MD PCP - General Internal Medicine 05/14/15 10/10/20 [facility], Pcp PCP - General Internal Medicine 10/11/20 documented as of this encounter
--- OUTSIDE RECORDS SUMMARY | 2024-08-11 17:05 | XMS_ITS | Encounter Summary ---
Author Organization [facility] Address [address] [place] [address] Care Team Providers Care Sports Management Intern Name Role Phone Chantale Walters MD Primary Care Provider Shelia Koo, Pcp Primary Care Provider Brandi camejo Encounter Details Date Type Department Care Team Description 06/04/2020 Pt. Non Urgent [place] [address] Monisha Berry MD Social History Tobacco Use Types Packs/Day [...] have Coronavirus / COVID-19? No / Unsure 06/04/2020 3:11 PM EST documented as of this encounter Progress Notes * Domonique Anderson L.P.N. - 06/05/2020 9:22 AM ESTFrom: Alo Sharp To: Monisha Berry MD Sent: 06/04/2020 8:43 PM EST Subject: colonoscopy Good morning Dr Berry, I was just checking through my stuff discovered that my colonoscopy was done March 13 [facility]. Thank you Alo documented in this encounter Plan of Treatment Not on file documented as of this encounter Visit Diagnoses Not on filedocumented in this encounter Care Teams Sports Management Intern Relationship Specialty Start Date End Date Chantale Walters MD PCP - General Internal Medicine 05/14/15 10/10/20 [facility], Pcp PCP - General Internal Medicine 10/11/20 documented as of this encounter
--- OUTSIDE RECORDS SUMMARY | 2024-08-11 17:05 | XMS_ITS | Encounter Summary ---
Author Organization [facility] Address [address] [place] [address] Care Team Providers Care Senior Research Engineer Name Role Phone Chantale Walters MD Primary Care Provider Shelia Koo, Pcp Primary Care Provider Brandi camejo Encounter Details Date Type Department Care Team Description 11/17/2019 Pt. Non Urgent Medical Question Medicine/Pediatrics - [address] [phone] Chantale Walters MD Social History Tobacco Use Types Packs/Day Years Used Date Smoking Tobacco: Never Smokeless Tobacco: Never Alcohol Use Standard Drinks/Week Comments No 0 (1 standard drink = 0.6 oz pur e alcohol) Sex Assigned at Date Recorded Not on file documented as of this encounter Progress Notes * Griselda Pelletier L.P.N. - 11/17/2019 3:08 PM EDTFrom: Alo Sharp To: Chantale Walters MD Sent: 11/17/2019 3:05 PM EDT Subject: amlodipine Good morning doctor O'Monique, I was looking up the side effects for amlodipine it explains a lot. I'm trying to figure out why I can never stay awake on the weekends I'm always tired during the week. Apparently that's one of the side effects. Also I get very shaky, and my legs when I sleep sometimes I can't get them to s top moving. If you need to see me to change the medsthen by all means let me know when you're available aga in and I'll make an appointment I'm going to need to anyway because of the three months for the Percocets. Thank you and I hope you're doing well Alo documented in this encounter Plan of Treatment Not on file documented as of this encounter Visit Diagnoses Not on filedocumented in this encounter Care Teams Senior Research Engineer Relationship Specialty Start Date End Date Chantale Walters MD PCP - General Internal Medicine 05/14/15 10/10/20 [facility], Pcp PCP - General Internal Medicine 10/11/20 documented as of this encounter
--- OUTSIDE RECORDS SUMMARY | 2024-08-11 17:05 | XMS_ITS | Encounter Summary ---
Author Organization [facility] Address [address] [place] [address] Care Team Providers Care Scenic Artist Name Role Phone Chantale Walters MD Primary Care Provider Shelia Koo, Pcp Primary Care Provider Brandi camejo Reason for Visit * Reason Onset Date Comments Faxed Refill 09/29/2018 Encounter Details Date Type Department Care Team Description 09/29/2018 Refill [place] [address] Lan Ni MD Faxed Refill Social History Tobacco Use Types Packs/Day Years Used Date Smoking Tobacco: Never Smokeless Tobacco: Never Alcohol Use Standard Drinks/Week Comments No 0 (1 standard drink = 0.6 oz pur e alcohol) Sex Assigned at Date Recorded Not on file documented as of this encounter Miscellaneous Notes * Telephone Encounter - Eleonora Puente M.A. - 09/29/2018 8:19 AM EDT Given by Rheumotology * Telephone Encounter - Rachel Wagner - 09/29/2018 8:03 AM EDT Patient would like script to be: E-PRESCRIBED/FAXED TO PHARMACY WHEN WAS THE PATIENT'S LAST APPOINTMENT IN ADULT MEDICINE? 02/08/18 WHEN WAS THE LAST TIME THE PATIENT SAW THEIR PCP? Same as above Does patient have an upcoming appointment? No-patient refused appointment, will call back to book appointment (THE MEDICATION REQUESTED IS ON THE MED LIST ABOVE) All of the medications requested were on the CURRENT MEDS list Did you check the Pharmacy information above?: YES Patient wants: 90 -day supply Is this a mail order prescription request ? NO If the refill is from a FAXED refill request what is the RX # listed on the fax? N/A Patients current insurance carrier is: Payor: [facility] / Plan: [employer] $35 [id number] [id number] / Product Type: [employer] [id number] documented in this encounter Plan of Treatment Not on file documented as of this encounter Visit Diagnoses Diagnosis Primary osteoarthritis of hip, unspecified laterality documented in this encounter Care Teams Scenic Artist Relationship Specialty Start Date End Date Chantale Walters MD PCP - General Internal Medicine 05/14/15 10/10/20 Trisha Koo PCP - General Internal Medicine 10/11/20 documented as of this encounter
--- OUTSIDE RECORDS SUMMARY | 2024-08-11 17:05 | XMS_ITS | Encounter Summary ---
Author Organization [facility] Address [address] [place] [address] Care Team Providers Care Cloth Finishing Range Operator Name Role Phone Chantale Walters MD Primary Care Provider Shelia avalos [facility], Pcp Primary Care Provider Brandi camejo Encounter Details Date Type Department Care Team Description 08/04/2018 Release of Information Medical Records [address] [place] [id number] Abstract, Provider Social History Tobacco Use Types [...] on filedocumented in this encounter Care Teams Cloth Finishing Range Operator Relationship Specialty Start Date End Date Chantale Walters MD PCP - General Internal Medicine 05/14/15 10/10/20 [facility], Pcp PCP - General Internal Medicine 10/11/20 documented as of this encounter
== END 2024-08-11 16:01 | disposition home or self-care (01) ==
PROVIDERS: PCP Internal Medicine; Visit Provider Internal Medicine
DX: I10 Essential (primary) hypertension (principal); F33.41 Major depressive disorder, recurrent, in partial remission

== ENCOUNTER → 2024-08-11 14:52 | Outpatient (BNVA) | payer OTHER, SELFPAY | PROVIDERS: PCP Internal Medicine; Visit Provider Internal Medicine | DX: I10 Essential (primary) hypertension (principal); F33.41 Major depressive disorder, recurrent, in partial remission; R45.4 Irritability and anger | CPT/HCPCS: 96127 ==

== ENCOUNTER → 2024-09-11 13:24 | Outpatient (BNVA) | payer OTHER, SELFPAY | PROVIDERS: PCP Internal Medicine; Visit Provider Internal Medicine ==